=== PATIENT | female | born 1970 | race Caucasian/White ===

== ENCOUNTER 2020-05-13 10:35 | Emergency (ER) | payer MEDICARE, MEDICAID, SELFPAY ==
[2020-05-13 10:39] VITALS: PULSE 75; RESP 18; TEMP 36.5; O2SAT 94; BMI 50.7
--- NOTE | 2020-05-13 10:53 | ED_ITS ---
HPI - Female Genitourinary General: Chief complaint: Urogenital-Female Stated complaint: back pain, hurts to urnine Time Seen by Provider: 05/13/20 10:42 Source: patient Mode of arrival: ambulatory Limitations: other (mental/intellectual disability ) History of Present Illness: HPI Narrative: Patient is a 49-year-old female who presents to ED today with a complaint of left-sided lower back pain, urinary urgency, hesitancy, dribbling over the past few days. Patient tells me she has a previous history of UTIs and states her symptoms today feel similar. She has not had any injury or trauma to the back. She does not complain about specific flank pain. She has not been running fevers. No vomiting. She denies vaginal discharge or vaginal odor. Onset (ago): day(s) Vaginal discharge: none Vaginal bleeding: none Associated symptoms: Deny abdominal pain, headache(s), nausea or vaginal discharge Review of Systems Const: Denies: fever(s), chills, body aches, fatigue, malaise or night sweats Card: Denies: chest pain Resp: Denies: dyspnea GI: Denies: abdominal pain, nausea, vomiting, diarrhea or change in bowel habits : Reports: difficulty voiding, urinary urgency, urinary hesitancy and dribbling; Denies: flank pain, dysuria, urinary frequency, genital lesions, genital pruritis, vaginal odor, vaginal discharge or pelvic pain Musc: Reports: back pain; Denies: neck pain, extremity pain, extremity swelling, joint pain or joint swelling Skin/Breast: Denies: rash Neuro: Denies: headache(s), numbness in extremities, weakness in extremities or sensory changes PFS ED PFSH: Medical History (Updated 05/13/20 @ 12:04 by CAMDEN Brasher) Anxiety Bipolar disorder delivery delivered [birth year] CVA (cerebral vascular accident) Depression Hypertension Morbid obesity Osteoarthritis Sleep apnea TIA (transient ischemic attack) Surgical History H/O adenoidectomy H/O dilation and curettage H/O tubal ligation History of left knee surgery History of tonsillectomy Family History Father CAD (coronary artery disease) Hypertension Mother Hypertension Hypothyroidism Social History Smoking and tobacco status: former smoker Second hand smoke exposure: No Alcohol intake: never Adopted: No Caregiver/support person: Yes Lives independently: Yes Household members: spouse Housing: House Marital status: service: No Current occupational status: disabled Current occupational exposures/hazards: No Pets and animals: No History of recent travel: No Sexually active: No Current gender identity: Female Lara/Mosque: Orthodoxy Special lara needs: No Agree to transfusion: No Financial difficulty paying for basics: Decline to Answer Physical Exam Const: COMMON NORMALS: no acute distress, patient oriented x3 and alert EXAM LIMITATIONS: other limitations (intellectual disability ) GENERAL APPEARANCE: cooperative NUTRITIONAL APPEARANCE: obese morbidly obese HENMT: COMMON NORMALS: normocephalic and atraumatic HEAD & SCALP: normocephalic and atraumatic Resp: COMMON NORMALS: normal respiratory effort and clear to auscultation bilaterally AUSCULTATION: clear to auscultation bilaterally Cardio: COMMON NORMALS: regular rate and regular rhythm RATE: regular rate RHYTHM: regular rhythm GI: COMMON NORMALS: Normal to inspection, nondistended, normoactive bowel sounds present, Soft to palpation, non-tender, No hepatosplenomegaly present and no masses PALPATION: Yes Soft to palpation and Yes No hepatosplenomegaly present : COMMON NORMALS: Yes no CVA tenderness BLADDER/KIDNEY EXAM: Yes no CVA tenderness Back/Pelvis: COMMON NORMALS: no CVA tenderness, thoracic and lumbar spine normal to inspection and thoraco-lumbar ROM normal THORACIC SPINE/UPPER BACK: Yes normal to inspection, Yes thoracic ROM normal, No thoracic spinal tenderness and No paraspinal muscle tenderness LUMBAR SPINE/LOWER BACK: No lumbar spinal tenderness, Yes paraspinal muscle tenderness (L lumbar) and No paraspinal muscle spasm Extremity: COMMON NORMALS: normal to inspection Neuro: COMMON NORMALS: patient oriented x3 SENSORIUM/ORIENTATION: Yes alert Skin: COMMON NORMALS: no rashes or lesions noted GENERAL SKIN EXAM: no rashes or lesions noted Course Vital Signs: Vital signs: Vital Signs Temperature 97.7 F 05/13/20 10:39 Pulse Rate 75 05/13/20 10:39 Respiratory Rate 18 05/13/20 10:39 Pulse Oximetry 94 05/13/20 10:39 MDM - Female MDM Narrative: Medical decision making narrative: pts urine is completely normal; labs overall look okay; nonfasting glucose 161-no diagnosis of diabetes; recommend she followup with PCP Dr. Goldberg for further evaluation; return to ED precautions given Lab Data: Labs: Lab Results 05/13/20 05/13/20 05/13/20 Range/Units 10:53 11:23 11:23 WBC 7.9 (4.0-10.0) 10^3/ uL RBC 4.61 (4.1-5.3) 10^6/u L Hgb 13.0 (11.5-15.3) g/dL Hct 41.7 (37.0-47.0) % MCV 90.5 (81-99) fL MCH 28.2 (28.0-34.0) pg MCHC 31.2 (30.0-36.0) g/dL RDW 13.3 (12.1-15.1) % Plt Count 256 (130-400) 10^3/c mm MPV 9.6 (7.4-10.4) fL Neut % (Auto) 57.6 % Lymph % (Auto) 36.1 % Hendricks % (Auto) 4.2 % Eos % (Auto) 1.4 % Baso % (Auto) 0.4 % Neut # (Auto) 4.57 (1.8-7.7) 10^3/u L Lymph # (Auto) 2.9 (0.8-4.8) 10^3/u L Hendricks # (Auto) 0.3 (0.2-0.9) 10^3/u L Eos # (Auto) 0.1 (0.0-0.8) 10^3/u L Baso # (Auto) 0.0 (0.0-0.1) 10^3/u L Nucleated RBC % (a uto) 0 % Nucleated RBCs # 0.0 /100WBC Sodium 137 (136-145) mmol/L Potassium 3.6 (3.5-5.1) mmol/L Chloride 99 (98-107) mmol/L Carbon Dioxide 28 (22-29) mmol/L Anion Gap 13.6 (5-19) BUN 13 (6-20) mg/dL Creatinine 1.0 H (0.5-0.9) mg/dL GFR Calculation 58.9 L (90-130) mL/min Glucose 161 H (65-115) mg/dL Calculated Osmolal ity 284 L (285-295) mOsm/k g Calcium 9.7 (8.5-10.5) mg/dL Total Bilirubin 0.2 (0.15-1.2) mg/dL AST 18 (0-32) U/L ALT 21 (0-33) U/L Alkaline Phosphata se 45 (35-105) IU/L Total Protein 6.8 (6.6-8.7) g/dL Albumin 4.2 (3.5-5.2) g/dL Globulin 2.6 (1.3-4.6) g/dL Urine Color Yellow (Yellow) Urine Appearance Clear (CLEAR) Urine pH 5 (5-7) Ur Specific Gravit y 1.015 (1.005-1.030) Urine Protein Neg (Negative) Urine Glucose (UA) Norm (Normal) Urine Ketones Negative (Negative) Urine Blood Neg (Negative) Urine Nitrate Negative (Negative) Urine Bilirubin Neg (NEGATIVE) Urine Urobilinogen Neg (Negative) mg/dL Ur Leukocyte Elizabeth ase Negative (Negative) Discharge Plan Discharge Patient Disposition: Home Clinical Impression: Elevated glucose level, Urinary urgency Acute left-sided back pain Qualifiers: Back pain location: low back pain Sciatica presence: without sciatica Qualified Code(s): M54.5 - Low back pain Condition: Stable Prescriptions: No Action trazodone 150 mg tablet 150 mg PO DAILY RF: 0 spironolacton-hydrochlorothiaz [Aldactazide] 25-25 mg tablet 0.5 tab PO DAILY RF: 0 metoprolol succinate 50 mg tablet extended release 24 hr 50 mg PO DAILY RF: 0 clopidogrel 75 mg tablet 75 mg PO DAILY RF: 0 pravastatin 80 mg tablet 80 mg PO DAILY RF: 0 tramadol 50 mg tablet 50 mg PO BID PRNRF: 0 fluoxetine 10 mg capsule 10 mg PO DAILY RF: 0 fluoxetine 20 mg capsule 20 mg PO DAILY RF: 0 hydroxyzine HCl 50 mg tablet 25 mg PO QID PRNRF: 0 bumetanide 2 mg tablet 2 mg PO DAILY RF: 0 potassium chloride [Klor-Con 10] 10 mEq tablet extended release 10 meq PO DAILY RF: 0 losartan 100 mg tablet 100 mg PO DAILY RF: 0 risperidone 1 mg tablet 1 mg PO BID RF: 0 amlodipine 5 mg tablet 2.5 mg PO DAILY RF: 0 Discharge Orders: Discharge Order (Routine); Ordered 05/13/20 Ordered By: Angela Cavazos Referrals: Deanna Lugo NP [Primary Care Provider] - Activity Restrictions/Additional Instructions: As discussed please follow up with Dr. Goldberg in the next 3-5 days for re- evaluation. Return to the emergency department for worsening pain, fevers, inability to urinate, any other concerns you may have. Coding Level of Care Code ED Outside Sales Executive for Marlineg Fwd Exam Comprehensive
[2020-05-13 11:10] LABS: Add Urine Microscopic? NO
[2020-05-13 11:25] LABS: Bilirubin Urine Neg (NEGATIVE); Blood Urine Neg (Negative); Glucose Urine UA Norm (Normal); Ketones Urine Negative (Negative); Leukocyte Esterase Urine Negative (Negative); Nitrate Urine Negative (Negative); Protein Urine Neg (Negative); Specific Gravity, Urine 1.015 (1.005-1.030); Urine Appearance Clear (CLEAR); Urine Color Yellow (Yellow); Urobilinogen Urine Neg (Negative); pH Urine 5 (5-7)
[2020-05-13 11:29] LABS: Basophils % 0.4 %; Eosinophils # 0.1 10^3/uL (0.0-0.8); Eosinophils % 1.4 %; Hematocrit 41.7 % (37.0-47.0); Lymphocytes # 2.9 10^3/uL (0.8-4.8); Lymphocytes % 36.1 %; Mean Corpuscular HGB Conc 31.2 g/dL (30.0-36.0); Mean Corpuscular Hemoglobin 28.2 pg (28.0-34.0); Mean Corpuscular Volume 90.5 fL (81-99); Mean Platelet Volume 9.6 fL (7.4-10.4); Monocytes # 0.3 10^3/uL (0.2-0.9); Monocytes % 4.2 %; Neutrophils # 4.57 10^3/uL (1.8-7.7); Neutrophils % 57.6 %; Nucleated Red Blood Cells % 0 %; Platelet Count 256 10^3/cmm (130-400); Red Blood Count 4.61 10^6/uL (4.1-5.3); Red Cell Distribution Width 13.3 % (12.1-15.1); White Blood Count 7.9 10^3/uL (4.0-10.0)
[2020-05-13 11:53] LABS: Alanine Aminotransferase 21 U/L (0-33); Albumin Level 4.2 g/dL (3.5-5.2); Alkaline Phosphatase 45 IU/L (35-105); Anion Gap 13.6 (5-19); Aspartate Amino Transferase 18 U/L (0-32); Blood Urea Nitrogen 13 mg/dL (6-20); Calcium 9.7 mg/dL (8.5-10.5); Carbon Dioxide 28 mmol/L (22-29); Chloride 99 mmol/L (98-107); Globulin 2.6 g/dL (1.3-4.6); Glomerular Filtration Rate 58.9 mL/min (90-130); Glucose 161 mg/dL (65-115); Osmolality Calculated 284 mOsm/kg (285-295); Potassium 3.6 mmol/L (3.5-5.1); Sodium 137 mmol/L (136-145); Total Bilirubin 0.2 mg/dL (0.15-1.2); Total Protein 6.8 g/dL (6.6-8.7)
[2020-05-13 12:09] VITALS: PULSE 73; RESP 18; O2SAT 93
== END 2020-05-13 12:10 | disposition home or self-care (01) ==
PROVIDERS: Emergency Provider Physician Assistant; PCP Nurse Practitioner Family
DX: M54.5 Low back pain (principal); R39.15 Urgency of urination; R73.9 Hyperglycemia, unspecified; Z79.02 Long term (current) use of antithrombotics/antiplatelets; Z87.891 Personal history of nicotine dependence; Z86.73 Personal history of transient ischemic attack (TIA), and cerebral infarction without residual deficits; I10 Essential (primary) hypertension
CPT/HCPCS: 12345; 36415; 80053; 81003; 85025; 99282

== ENCOUNTER 2021-01-31 16:44 | Emergency (ER) | payer MEDICARE, MEDICAID, SELFPAY ==
[2021-01-31] VITALS (15 sets, daily range): BP systolic 153–201; BP diastolic 94–162; PULSE 65–75; RESP 16–24; TEMP 36.6–36.7; O2SAT 94–96; BMI 50.5
--- NOTE | 2021-01-31 17:07 | ECG_ITS ---
[facility] Test Date: 2021-01-31 Pat Name: Lauryn Ho Department: Room: Gender: Female Card Placer: : 1970 Requested By: Gurjit Garcia Order Number: [id number] Marcelino MD: Lona Gomez M.D. Measurements Intervals [place] Rate: 58 P: 27 HI: 169 QRS: -11 QRSD: 92 T: 59 QT: 451 QTc: 446 Interpretive Statements SINUS BRADYCARDIA Compared to ECG 10/13/2018 16:59:42 Sinus rhythm no longer present T-wave abnormality no longer present Electronically Signed On 01-31-2021 21:15:44 CDT by Lona Gomez M.D. [id number] f
--- NOTE | 2021-01-31 17:07 | XR_ITS ---
WS: [id number] Exam: XR chest 1V portable [id number] Date/Time of Exam: 01/31/2021 5:34 PM Reason For Exam: dyspnea/cough Comparison 10/13/2018. Findings: The lungs are clear and fully expanded. Costophrenic angles are sharp. No infiltrates. Bronchovascula r relief appears normal. Cardiac silhouette is unremarkable. Bony elements are intact. XR/XR chest 1V portable [id number] IMPRESSION: Unremarkable chest radiograph.
--- NOTE | 2021-01-31 17:18 | W.ED.SOB ---
Documented by User: Gurjit Shaw DO 02/01/21 05:50 HPI - SOB/Dyspnea General: Chief Complaint: Shortness of Breath/Dyspnea Stated Complaint: TROUBLE BREATHING Time Seen by Provider: 01/31/21 17:00 History of Present Illness: HPI Narrative: 50-year-old female presents to the emergency room with a history of COPD complaining of shortness of breath. She denies any chest pain. She not had a fever. She has a chronic cough she feels like she needs to cough something up but has not been able to do so. She is not had any fever sweats or chills. She states she has used her butyryl inhaler at home without any significant relief MD elicited complaint: shortness of breath and cough Pertinent past history: COPD Onset (ago): day(s) Context: occurred during exertion Timing: constant Severity: mild Exacerbating factors: exertion and coughing Relieving factors: rest Known history of: COPD Associated symptoms: Reports chest congestion and cough; Deny abdominal pain, chest pain, diaphoresis, dizziness, extremity pain, fever(s), hemoptysis, lightheadedness, myalgias, nausea, orthopnea, palpitations, paresthesias, polydipsia, polyuria, rash, sense of impending doom, syncope or vomiting Treatment prior to arrival: bronchodilator Review of Systems Const: Denies: fever(s) or diaphoresis ENMT: Denies: throat pain, ear or mastoid pain, nasal discharge or nasal congestion Card: Denies: chest pain, palpitations, lightheadedness, syncope or orthopnea Resp: Reports: chest congestion; Denies: hemoptysis GI: Denies: abdominal pain, nausea or vomiting : Denies: flank pain, difficulty voiding, dysuria, urinary frequency or urinary urgency Musc: Denies: extremity pain Skin/Breast: Denies: rash or pruritus Neuro: Denies: dizziness Endo: Denies: polyuria or polydipsia PFSH ED PFSH: Medical History Anxiety Bipolar disorder delivery delivered 1991 CVA (cerebral vascular accident) Depression Hypertension Morbid obesity Osteoarthritis Sleep apnea TIA (transient ischemic attack) Surgical History H/O adenoidectomy H/O dilation and curettage H/O tubal ligation History of left knee surgery History of tonsillectomy Family History Father CAD (coronary artery disease) Hypertension Mother Hypertension Hypothyroidism Social History Smoking and tobacco status: former smoker Alcohol intake: never Household members: spouse Marital status: Current occupational status: disabled Current occupational exposures/hazards: No History of recent travel: No [employer]ara/[employer]: [employer] Special lara needs: No Agree to transfusion: No Financial difficulty paying for basics: Decline to Answer Physical Exam Const: COMMON NORMALS: no acute distress GENERAL APPEARANCE: cooperative and comfortable ORIENTATION/CONSCIOUSNESS: Yes awake, Yes oriented to person, Yes oriented to place and Yes oriented to time HENMT: COMMON NORMALS: normocephalic, atraumatic and hearing grossly normal bilaterally HEAD & SCALP: normocephalic and atraumatic Eye: COMMON NORMALS: Equal, round and reactive pupils present, EOMs intact bilaterally, conjunctivae normal and no scleral icterus CONJUNCTIVA: Yes conjunctivae normal PUPIL: Yes Equal, round and reactive pupils present Neck/C-Spine: COMMON NORMALS: no JVD Resp: COMMON NORMALS: normal respiratory effort, No retractions, No use of accessory muscles and clear to auscultation bilaterally AUSCULTATION: clear to auscultation bilaterally Cardio: COMMON NORMALS: no JVD, regular rate, regular rhythm and No murmurs present (Cardio) RATE: regular rate RHYTHM: regular rhythm GI: COMMON NORMALS: Soft to palpation and No hepatosplenomegaly present AUSCULTATION: Yes normoactive bowel sounds PALPATION: Yes Soft to palpation, No Tenderness to palpation present (GI), No Guarding due to palpation present (GI) and Yes No hepatosplenomegaly present Extremity: COMMON NORMALS: normal to inspection, capillary refill normal, no clubbing, cyanosis or edema, no calf tenderness and no pedal edema Neuro: SENSORIUM/ORIENTATION: Yes oriented to person, Yes oriented to place and Yes oriented to time Skin: COMMON NORMALS: no rashes or lesions noted GENERAL SKIN EXAM: no rashes or lesions noted Course Vital Signs: Vital signs: Vital Signs Temperature 98.1 F 01/31/21 21:21 Pulse Rate 69 01/31/21 21:21 Respiratory Rate 18 01/31/21 21:21 Blood Pressure 153/101 01/31/21 21:21 Pulse Oximetry 95 01/31/21 21:21 MDM - SOB/Dyspnea MDM Narrative: Medical decision making narrative: Patient's lung sounds on exam are clear she is not tachycardic or hypoxic. Her chest x-ray is normal. EKG does not show anything acute see what her labs are still pending care turned over to Dr. Johnson at change of shift. See his note for final diagnosis and disposition. Lab Data: Labs: Lab Results 01/31/21 01/31/21 01/31/21 Range/Units 17:35 17:35 17:35 WBC 8.2 (4.0-10.0) 10^3/ uL RBC 4.60 (4.1-5.3) 10^6/u L Hgb 13.0 (11.5-15.3) g/dL Hct 41.6 (37.0-47.0) % MCV 90.4 (81-99) fL MCH 28.3 (28.0-34.0) pg MCHC 31.3 (30.0-36.0) g/dL RDW 14.6 (12.1-15.1) % Plt Count 260 (130-400) 10^3/c mm MPV 10.1 (7.4-10.4) fL Neut % (Auto) 51.7 % Lymph % (Auto) 38.4 % [place] % (Auto) 7.7 % Eos % (Auto) 1.2 % Baso % (Auto) 0.4 % Neut # (Auto) 4.23 (1.8-7.7) 10^3/u L Lymph # (Auto) 3.1 (0.8-4.8) 10^3/u L [place] # (Auto) 0.6 (0.2-0.9) 10^3/u L Eos # (Auto) 0.1 (0.0-0.8) 10^3/u L Baso # (Auto) 0.0 (0.0-0.1) 10^3/u L Nucleated RBC % (a uto) 0 % Nucleated RBCs # 0.0 /100WBC D-Dimer (0-0.59) ug/mIFE U Specimen Type Sample Site ABG pH (7.35-7.45) ABG pCO2 (35-45) mmHg ABG pO2 (80.0-100.0) mmH g ABG HCO3 (22-26) mmol/L ABG O2 Saturation ABG Base Excess (-2.0-2.0) mmol/ L Steve Test A-a O2 Gradient Hematocrit (37-47) % Hgb O2 Saturation (95-100) % Carboxyhemoglobin (0.4-20.1) %THgb Methemoglobin (0.4-1.5) % Total Hemoglobin (12-16) g/dL Ionized Calcium (1.1-1.4) mmol/L O2 Delivery Device Restaurant Service Manager ID Sodium 140 (136-145) mmol/L Potassium 4.1 (3.5-5.1) mmol/L Chloride 104 (98-107) mmol/L Carbon Dioxide 27 (22-29) mmol/L Anion Gap 13.1 (5-19) BUN 9 (6-20) mg/dL Creatinine 0.7 (0.5-0.9) mg/dL GFR Calculation 88.6 L (90-130) mL/min Glucose 84 (65-115) mg/dL Calculated Osmolal ity 288 (285-295) mOsm/k g Calcium 9.1 (8.5-10.5) mg/dL Total Bilirubin 0.2 (0.15-1.2) mg/dL AST 13 (0-32) U/L ALT 11 (0-33) U/L Alkaline Phosphata se 56 (35-105) IU/L Troponin T Baselin e 10 (0-10) ng/L Troponin T 120 Min [place] (0-10) ng/L Delta Troponin T (0-10) ABS# NT-Pro-B Natriuret Pep (0-125) pg/mL Total Protein 6.7 (6.6-8.7) g/dL Albumin 4.2 (3.5-5.2) g/dL Globulin 2.5 (1.3-4.6) g/dL 01/31/21 01/31/21 01/31/21 Range/Units 17:35 17:44 19:00 WBC (4.0-10.0) 10^3/ uL RBC (4.1-5.3) 10^6/u L Hgb (11.5-15.3) g/dL Hct (37.0-47.0) % MCV (81-99) fL MCH (28.0-34.0) pg MCHC (30.0-36.0) g/dL RDW (12.1-15.1) % Plt Count (130-400) 10^3/c mm MPV (7.4-10.4) fL Neut % (Auto) % Lymph % (Auto) % [place] % (Auto) % Eos % (Auto) % Baso % (Auto) % Neut # (Auto) (1.8-7.7) 10^3/u L Lymph # (Auto) (0.8-4.8) 10^3/u L [place] # (Auto) (0.2-0.9) 10^3/u L Eos # (Auto) (0.0-0.8) 10^3/u L Baso # (Auto) (0.0-0.1) 10^3/u L Nucleated RBC % (a uto) % Nucleated RBCs # /100WBC D-Dimer (0-0.59) ug/mIFE U Specimen Type Arterial Sample Site Radial, right ABG pH 7.58 H* (7.35-7.45) ABG pCO2 23.5 L (35-45) mmHg ABG pO2 181.0 H (80.0-100.0) mmH g ABG HCO3 21.8 L (22-26) mmol/L ABG O2 Saturation 98.9 ABG Base Excess 1.3 (-2.0-2.0) mmol/ L Steve Test Pos A-a O2 Gradient Not Reportable Hematocrit 37.6 (37-47) % Hgb O2 Saturation 98.3 (95-100) % Carboxyhemoglobin 0.0 L (0.4-20.1) %THgb Methemoglobin 0.7 (0.4-1.5) % Total Hemoglobin 12.3 (12-16) g/dL Ionized Calcium 1.2 (1.1-1.4) mmol/L O2 Delivery Device Room air Restaurant Service Manager ID jmn Sodium 138.0 (136-145) mmol/L Potassium 4.6 (3.5-5.1) mmol/L Chloride (98-107) mmol/L Carbon Dioxide (22-29) mmol/L Anion Gap (5-19) BUN (6-20) mg/dL Creatinine (0.5-0.9) mg/dL GFR Calculation (90-130) mL/min Glucose 89.0 (65-115) mg/dL Calculated Osmolal ity (285-295) mOsm/k g Calcium (8.5-10.5) mg/dL Total Bilirubin (0.15-1.2) mg/dL AST (0-32) U/L ALT (0-33) U/L Alkaline Phosphata se (35-105) IU/L Troponin T Baselin e (0-10) ng/L Troponin T 120 Min [place] 9.76 (0-10) ng/L Delta Troponin T -0.24 L (0-10) ABS# NT-Pro-B Natriuret Pep 365 H (0-125) pg/mL Total Protein (6.6-8.7) g/dL Albumin (3.5-5.2) g/dL Globulin (1.3-4.6) g/dL 01/31/21 Range/Units 20:40 WBC (4.0-10.0) 10^3/ uL RBC (4.1-5.3) 10^6/u L Hgb (11.5-15.3) g/dL Hct (37.0-47.0) % MCV (81-99) fL MCH (28.0-34.0) pg MCHC (30.0-36.0) g/dL RDW (12.1-15.1) % Plt Count (130-400) 10^3/c mm MPV (7.4-10.4) fL Neut % (Auto) % Lymph % (Auto) % [place] % (Auto) % Eos % (Auto) % Baso % (Auto) % Neut # (Auto) (1.8-7.7) 10^3/u L Lymph # (Auto) (0.8-4.8) 10^3/u L [place] # (Auto) (0.2-0.9) 10^3/u L Eos # (Auto) (0.0-0.8) 10^3/u L Baso # (Auto) (0.0-0.1) 10^3/u L Nucleated RBC % (a uto) % Nucleated RBCs # /100WBC D-Dimer 0.32 (0-0.59) ug/mIFE U Specimen Type Sample Site ABG pH (7.35-7.45) ABG pCO2 (35-45) mmHg ABG pO2 (80.0-100.0) mmH g ABG HCO3 (22-26) mmol/L ABG O2 Saturation ABG Base Excess (-2.0-2.0) mmol/ L Steve Test A-a O2 Gradient Hematocrit (37-47) % Hgb O2 Saturation (95-100) % Carboxyhemoglobin (0.4-20.1) %THgb Methemoglobin (0.4-1.5) % Total Hemoglobin (12-16) g/dL Ionized Calcium (1.1-1.4) mmol/L O2 Delivery Device Restaurant Service Manager ID Sodium (136-145) mmol/L Potassium (3.5-5.1) mmol/L Chloride (98-107) mmol/L Carbon Dioxide (22-29) mmol/L Anion Gap (5-19) BUN (6-20) mg/dL Creatinine (0.5-0.9) mg/dL GFR Calculation (90-130) mL/min Glucose (65-115) mg/dL Calculated Osmolal ity (285-295) mOsm/k g Calcium (8.5-10.5) mg/dL Total Bilirubin (0.15-1.2) mg/dL AST (0-32) U/L ALT (0-33) U/L Alkaline Phosphata se (35-105) IU/L Troponin T Baselin e (0-10) ng/L Troponin T 120 Min [place] (0-10) ng/L Delta Troponin T (0-10) ABS# NT-Pro-B Natriuret Pep (0-125) pg/mL Total Protein (6.6-8.7) g/dL Albumin (3.5-5.2) g/dL Globulin (1.3-4.6) g/dL Discharge Plan Discharge Patient Disposition: Home Clinical Impression: Acute exacerbation of chronic obstructive airways disease Condition: Stable Prescriptions: No Action trazodone 150 mg tablet 150 mg PO BEDTIME RF: 0 spironolacton-hydrochlorothiaz [Aldactazide] 25-25 mg tablet 1 tab PO DAILY RF: 0 metoprolol succinate 50 mg tablet extended release 24 hr 50 mg PO DAILY RF: 0 clopidogrel 75 mg tablet 75 mg PO DAILY RF: 0 tramadol 50 mg tablet 50 mg PO BID PRN (Reason: Pain) RF: 0 fluoxetine 10 mg capsule 10 mg PO DAILY RF: 0 fluoxetine 20 mg capsule 20 mg PO DAILY RF: 0 hydroxyzine HCl 50 mg tablet 25 mg PO QID PRN (Reason: Anxiety) RF: 0 bumetanide 2 mg tablet 2 mg PO DAILY PRN (Reason: Edema) RF: 0 potassium chloride [Klor-Con 10] 10 mEq tablet extended release 10 meq PO DAILY RF: 0 losartan 100 mg tablet 100 mg PO DAILY RF: 0 risperidone 1 mg tablet 1 mg PO BID RF: 0 amlodipine 5 mg tablet 7.5 mg PO DAILY RF: 0 losartan 50 mg Tablet 50 mg PO DAILY RF: 0 Discharge Orders: Discharge ED (Routine); Ordered 01/31/21 Ordered By: Selina Johnson Referrals: Deanna Lugo NP [Primary Care Provider] - 1-3 days Discharge Diet: Advance as tolerated Discharge Activity: Resume usual activity Patient Instructions: Chronic Obstructive Pulmonary Disease (ED) Coding Level of Care Code ED Health Care Law Specialist for Chg Fwd Exam Comprehensive Documented by User: Selina Johnson MD 01/31/21 21:01 HPI - SOB/Dyspnea General: Chief Complaint: Shortness of Breath/Dyspnea Stated Complaint: TROUBLE BREATHING Time Seen by Provider: 01/31/21 17:00 [facility] ED PFSH: Medical History Anxiety Bipolar disorder delivery delivered 1988, 1991 CVA (cerebral vascular accident) Depression Hypertension Morbid obesity Osteoarthritis Sleep apnea TIA (transient ischemic attack) Surgical History H/O adenoidectomy H/O dilation and curettage H/O tubal ligation History of left knee surgery History of tonsillectomy Family History Father CAD (coronary artery disease) Hypertension Mother Hypertension Hypothyroidism Social History Smoking and tobacco status: former smoker Alcohol intake: never Household members: spouse Marital status: Current occupational status: disabled Current occupational exposures/hazards: No History of recent travel: No [employer]ara/[employer]: [employer] Special lara needs: No Agree to transfusion: No Financial difficulty paying for basics: Decline to Answer Physical Exam Const: COMMON NORMALS: no acute distress, patient oriented x3 and healthy appearing HENMT: COMMON NORMALS: normocephalic and atraumatic HEAD & SCALP: normocephalic and atraumatic Eye: COMMON NORMALS: Equal, round and reactive pupils present and EOMs intact bilaterally PUPIL: Yes Equal, round and reactive pupils present Neck/C-Spine: COMMON NORMALS: full ROM and supple Chest: COMMONS NORMALS: normal inspection of the chest and normal palpation of entire chest wall Resp: COMMON NORMALS: normal respiratory effort, No retractions, No use of accessory muscles and clear to auscultation bilaterally AUSCULTATION: clear to auscultation bilaterally Cardio: COMMON NORMALS: regular rate, regular rhythm and No murmurs present (Cardio) RATE: regular rate RHYTHM: regular rhythm GI: COMMON NORMALS: Normal to inspection, nondistended, normoactive bowel sounds present, Soft to palpation, non-tender and no masses PALPATION: Yes Soft to palpation Extremity: COMMON NORMALS: normal to inspection and full ROM Neuro: COMMON NORMALS: patient oriented x3, moves all extremities and no focal motor deficits Psych: COMMON NORMALS: mental status grossly normal, Normal thought process present and cooperative THOUGHT PROCESS: Normal thought process present Skin: COMMON NORMALS: no rashes or lesions noted and no wounds GENERAL SKIN EXAM: no rashes or lesions noted Course Vital Signs: Vital signs: Vital Signs Temperature 98.1 F 01/31/21 21:21 Pulse Rate 69 01/31/21 21:21 Respiratory Rate 18 01/31/21 21:21 Blood Pressure 153/101 01/31/21 21:21 Pulse Oximetry 95 01/31/21 21:21 MDM - SOB/Dyspnea MDM Narrative: Medical decision making narrative: Patient presents with likely asthma exacerbation. She feels much improved after breathing treatment. I did give her Decadron. Her troponins are negative her D-dimer is negative as well. She has no signs of pulmonary embolism. She has no signs of pneumonia. She is to use her inhaler at home and follow-up with her PCP in 2 to 4 days and return if worsening. She understands agrees to plan. Lab Data: Labs: Lab Results 01/31/21 01/31/21 01/31/21 Range/Units 17:35 17:35 17:35 WBC 8.2 (4.0-10.0) 10^3/ uL RBC 4.60 (4.1-5.3) 10^6/u L Hgb 13.0 (11.5-15.3) g/dL Hct 41.6 (37.0-47.0) % MCV 90.4 (81-99) fL MCH 28.3 (28.0-34.0) pg MCHC 31.3 (30.0-36.0) g/dL RDW 14.6 (12.1-15.1) % Plt Count 260 (130-400) 10^3/c mm MPV 10.1 (7.4-10.4) fL Neut % (Auto) 51.7 % Lymph % (Auto) 38.4 % [place] % (Auto) 7.7 % Eos % (Auto) 1.2 % Baso % (Auto) 0.4 % Neut # (Auto) 4.23 (1.8-7.7) 10^3/u L Lymph # (Auto) 3.1 (0.8-4.8) 10^3/u L [place] # (Auto) 0.6 (0.2-0.9) 10^3/u L Eos # (Auto) 0.1 (0.0-0.8) 10^3/u L Baso # (Auto) 0.0 (0.0-0.1) 10^3/u L Nucleated RBC % (a uto) 0 % Nucleated RBCs # 0.0 /100WBC D-Dimer (0-0.59) ug/mIFE U Specimen Type Sample Site ABG pH (7.35-7.45) ABG pCO2 (35-45) mmHg ABG pO2 (80.0-100.0) mmH g ABG HCO3 (22-26) mmol/L ABG O2 Saturation ABG Base Excess (-2.0-2.0) mmol/ L Steve Test A-a O2 Gradient Hematocrit (37-47) % Hgb O2 Saturation (95-100) % Carboxyhemoglobin (0.4-20.1) %THgb Methemoglobin (0.4-1.5) % Total Hemoglobin (12-16) g/dL Ionized Calcium (1.1-1.4) mmol/L O2 Delivery Device Restaurant Service Manager ID Sodium 140 (136-145) mmol/L Potassium 4.1 (3.5-5.1) mmol/L Chloride 104 (98-107) mmol/L Carbon Dioxide 27 (22-29) mmol/L Anion Gap 13.1 (5-19) BUN 9 (6-20) mg/dL Creatinine 0.7 (0.5-0.9) mg/dL GFR Calculation 88.6 L (90-130) mL/min Glucose 84 (65-115) mg/dL Calculated Osmolal ity 288 (285-295) mOsm/k g Calcium 9.1 (8.5-10.5) mg/dL Total Bilirubin 0.2 (0.15-1.2) mg/dL AST 13 (0-32) U/L ALT 11 (0-33) U/L Alkaline Phosphata se 56 (35-105) IU/L Troponin T Baselin e 10 (0-10) ng/L Troponin T 120 Min [place] (0-10) ng/L Delta Troponin T (0-10) ABS# NT-Pro-B Natriuret Pep (0-125) pg/mL Total Protein 6.7 (6.6-8.7) g/dL Albumin 4.2 (3.5-5.2) g/dL Globulin 2.5 (1.3-4.6) g/dL 01/31/21 01/31/21 01/31/21 Range/Units 17:35 17:44 19:00 WBC (4.0-10.0) 10^3/ uL RBC (4.1-5.3) 10^6/u L Hgb (11.5-15.3) g/dL Hct (37.0-47.0) % MCV (81-99) fL MCH (28.0-34.0) pg MCHC (30.0-36.0) g/dL RDW (12.1-15.1) % Plt Count (130-400) 10^3/c mm MPV (7.4-10.4) fL Neut % (Auto) % Lymph % (Auto) % [place] % (Auto) % Eos % (Auto) % Baso % (Auto) % Neut # (Auto) (1.8-7.7) 10^3/u L Lymph # (Auto) (0.8-4.8) 10^3/u L [place] # (Auto) (0.2-0.9) 10^3/u L Eos # (Auto) (0.0-0.8) 10^3/u L Baso # (Auto) (0.0-0.1) 10^3/u L Nucleated RBC % (a uto) % Nucleated RBCs # /100WBC D-Dimer (0-0.59) ug/mIFE U Specimen Type Arterial Sample Site Radial, right ABG pH 7.58 H* (7.35-7.45) ABG pCO2 23.5 L (35-45) mmHg ABG pO2 181.0 H (80.0-100.0) mmH g ABG HCO3 21.8 L (22-26) mmol/L ABG O2 Saturation 98.9 ABG Base Excess 1.3 (-2.0-2.0) mmol/ L Steve Test Pos A-a O2 Gradient Not Reportable Hematocrit 37.6 (37-47) % Hgb O2 Saturation 98.3 (95-100) % Carboxyhemoglobin 0.0 L (0.4-20.1) %THgb Methemoglobin 0.7 (0.4-1.5) % Total Hemoglobin 12.3 (12-16) g/dL Ionized Calcium 1.2 (1.1-1.4) mmol/L O2 Delivery Device Room air Restaurant Service Manager ID jmn Sodium 138.0 (136-145) mmol/L Potassium 4.6 (3.5-5.1) mmol/L Chloride (98-107) mmol/L Carbon Dioxide (22-29) mmol/L Anion Gap (5-19) BUN (6-20) mg/dL Creatinine (0.5-0.9) mg/dL GFR Calculation (90-130) mL/min Glucose 89.0 (65-115) mg/dL Calculated Osmolal ity (285-295) mOsm/k g Calcium (8.5-10.5) mg/dL Total Bilirubin (0.15-1.2) mg/dL AST (0-32) U/L ALT (0-33) U/L Alkaline Phosphata se (35-105) IU/L Troponin T Baselin e (0-10) ng/L Troponin T 120 Min [place] 9.76 (0-10) ng/L Delta Troponin T -0.24 L (0-10) ABS# NT-Pro-B Natriuret Pep 365 H (0-125) pg/mL Total Protein (6.6-8.7) g/dL Albumin (3.5-5.2) g/dL Globulin (1.3-4.6) g/dL 01/31/21 Range/Units 20:40 WBC (4.0-10.0) 10^3/ uL RBC (4.1-5.3) 10^6/u L Hgb (11.5-15.3) g/dL Hct (37.0-47.0) % MCV (81-99) fL MCH (28.0-34.0) pg MCHC (30.0-36.0) g/dL RDW (12.1-15.1) % Plt Count (130-400) 10^3/c mm MPV (7.4-10.4) fL Neut % (Auto) % Lymph % (Auto) % [place] % (Auto) % Eos % (Auto) % Baso % (Auto) % Neut # (Auto) (1.8-7.7) 10^3/u L Lymph # (Auto) (0.8-4.8) 10^3/u L [place] # (Auto) (0.2-0.9) 10^3/u L Eos # (Auto) (0.0-0.8) 10^3/u L Baso # (Auto) (0.0-0.1) 10^3/u L Nucleated RBC % (a uto) % Nucleated RBCs # /100WBC D-Dimer 0.32 (0-0.59) ug/mIFE U Specimen Type Sample Site ABG pH (7.35-7.45) ABG pCO2 (35-45) mmHg ABG pO2 (80.0-100.0) mmH g ABG HCO3 (22-26) mmol/L ABG O2 Saturation ABG Base Excess (-2.0-2.0) mmol/ L Steve Test A-a O2 Gradient Hematocrit (37-47) % Hgb O2 Saturation (95-100) % Carboxyhemoglobin (0.4-20.1) %THgb Methemoglobin (0.4-1.5) % Total Hemoglobin (12-16) g/dL Ionized Calcium (1.1-1.4) mmol/L O2 Delivery Device Restaurant Service Manager ID Sodium (136-145) mmol/L Potassium (3.5-5.1) mmol/L Chloride (98-107) mmol/L Carbon Dioxide (22-29) mmol/L Anion Gap (5-19) BUN (6-20) mg/dL Creatinine (0.5-0.9) mg/dL GFR Calculation (90-130) mL/min Glucose (65-115) mg/dL Calculated Osmolal ity (285-295) mOsm/k g Calcium (8.5-10.5) mg/dL Total Bilirubin (0.15-1.2) mg/dL AST (0-32) U/L ALT (0-33) U/L Alkaline Phosphata se (35-105) IU/L Troponin T Baselin e (0-10) ng/L Troponin T 120 Min [place] (0-10) ng/L Delta Troponin T (0-10) ABS# NT-Pro-B Natriuret Pep (0-125) pg/mL Total Protein (6.6-8.7) g/dL Albumin (3.5-5.2) g/dL Globulin (1.3-4.6) g/dL Imaging Data^: CXR: Attestation: I personally reviewed and interpreted this imaging study as follows: My impression: no acute abnormality EKG Data^: EKG 1: Attestation: I personally reviewed and interpreted this EKG as follows: EKG Interpretation Date: 01/31/21 EKG interpretation time: 19:23 Interpretation: nsr hr [address] or t wave abnormalities qrs 90 qtc 410 Discharge Plan Discharge Patient Disposition: Home Clinical Impression: Acute exacerbation of chronic obstructive airways disease Condition: Stable Prescriptions: No Action trazodone 150 mg tablet 150 mg PO BEDTIME RF: 0 spironolacton-hydrochlorothiaz [Aldactazide] 25-25 mg tablet 1 tab PO DAILY RF: 0 metoprolol succinate 50 mg tablet extended release 24 hr 50 mg PO DAILY RF: 0 clopidogrel 75 mg tablet 75 mg PO DAILY RF: 0 tramadol 50 mg tablet 50 mg PO BID PRN (Reason: Pain) RF: 0 fluoxetine 10 mg capsule 10 mg PO DAILY RF: 0 fluoxetine 20 mg capsule 20 mg PO DAILY RF: 0 hydroxyzine HCl 50 mg tablet 25 mg PO QID PRN (Reason: Anxiety) RF: 0 bumetanide 2 mg tablet 2 mg PO DAILY PRN (Reason: Edema) RF: 0 potassium chloride [Klor-Con 10] 10 mEq tablet extended release 10 meq PO DAILY RF: 0 losartan 100 mg tablet 100 mg PO DAILY RF: 0 risperidone 1 mg tablet 1 mg PO BID RF: 0 amlodipine 5 mg tablet 7.5 mg PO DAILY RF: 0 losartan 50 mg Tablet 50 mg PO DAILY RF: 0 Discharge Orders: Discharge ED (Routine); Ordered 01/31/21 Ordered By: Selina Johnson Referrals: Deanna Lugo NP [Primary Care Provider] - 1-3 days Discharge Diet: Advance as tolerated Discharge Activity: Resume usual activity Patient Instructions: Chronic Obstructive Pulmonary Disease (ED) Coding Level of Care Code ED Health Care Law Specialist for Chg Fwd Exam Comprehensive
[2021-01-31 17:53] LABS: ABG PCO2 23.5 mmHg (35-45); Arterial Blood Gas Hematocrit 37.6 % (37-47); Base Excess ABG 1.3 mmol/L (-2.0-2.0); Blood Gas Allen Test Pos; Blood Gas Sample Site Radial, right; Blood Gas Sample Type Arterial; HCO3 ABG 21.8 mmol/L (22-26); HGB O2 Sat 98.3 % (95-100); Ionized Calcium Level - ABG 1.2 mmol/L (1.1-1.4); Methemoglobin 0.7 % (0.4-1.5); Oxygen Device ROOM AIR; Oxygen Saturation ABG 98.9; Potassium Level - ABG 4.6 mmol/L (3.5-5.0); Total Hemoglobin 12.3 g/dL (12-16)
[2021-01-31 17:54] LABS: ABG PH Result 7.58 (7.35-7.45)
[2021-01-31 17:54] LABS: Basophils % 0.4 %; Eosinophils # 0.1 10^3/uL (0.0-0.8); Eosinophils % 1.2 %; Hematocrit 41.6 % (37.0-47.0); Lymphocytes # 3.1 10^3/uL (0.8-4.8); Lymphocytes % 38.4 %; Mean Corpuscular HGB Conc 31.3 g/dL (30.0-36.0); Mean Corpuscular Hemoglobin 28.3 pg (28.0-34.0); Mean Corpuscular Volume 90.4 fL (81-99); Mean Platelet Volume 10.1 fL (7.4-10.4); Monocytes # 0.6 10^3/uL (0.2-0.9); Monocytes % 7.7 %; Neutrophils # 4.23 10^3/uL (1.8-7.7); Neutrophils % 51.7 %; Nucleated Red Blood Cells % 0 %; Platelet Count 260 10^3/cmm (130-400); Red Cell Distribution Width 14.6 % (12.1-15.1); White Blood Count 8.2 10^3/uL (4.0-10.0)
--- NOTE | 2021-01-31 18:14 | PC.NURSE ---
Pt provided with warm blanket. Pt and updated on wait for results. Call light in reach, no needs at this time.
[2021-01-31 18:20] LABS: Alanine Aminotransferase 11 U/L (0-33); Albumin Level 4.2 g/dL (3.5-5.2); Alkaline Phosphatase 56 IU/L (35-105); Anion Gap 13.1 (5-19); Aspartate Amino Transferase 13 U/L (0-32); Blood Urea Nitrogen 9 mg/dL (6-20); Calcium 9.1 mg/dL (8.5-10.5); Carbon Dioxide 27 mmol/L (22-29); Chloride 104 mmol/L (98-107); Globulin 2.5 g/dL (1.3-4.6); Glomerular Filtration Rate 88.6 mL/min (90-130); Glucose 84 mg/dL (65-115); Osmolality Calculated 288 mOsm/kg (285-295); Potassium 4.1 mmol/L (3.5-5.1); Sodium 140 mmol/L (136-145); Total Bilirubin 0.2 mg/dL (0.15-1.2); Total Protein 6.7 g/dL (6.6-8.7); Troponin(5th) Baseline 10 ng/L (0-10)
[2021-01-31] MEDS: dexamethasone 10 mg/mL INJ IVP (18:44)
[2021-01-31] MEDS: hyDRALAzine 20 mg/mL INJ 1 mL 10 MG IVP (18:45)
--- NOTE | 2021-01-31 19:07 | ECG_ITS ---
[facility] Test Date: 2021-01-31 Pat Name: Lauryn Ho Department: Room: Gender: Female Medical Unit Secretary: : 1970 Requested By: Gurjit Garcia Order Number: [id number] Marcelino MD: Lona Gomez M.D. Measurements Intervals [place] Rate: 69 P: 50 AK: 183 QRS: 31 QRSD: 90 T: 78 QT: 391 QTc: 420 Interpretive Statements SINUS RHYTHM NONSPECIFIC T-WAVE ABNORMALITY Compared to ECG 01/31/2021 17:19:17 T-wave abnormality now present Sinus bradycardia no longer present Electronically Signed On 01-31-2021 21:26:28 CDT by Lona Gomez M.D. [id number]
[2021-01-31] MEDS: ipratropium-albuterol 3 mL Neb INHALATION (19:34)
[2021-01-31 19:41] LABS: Troponin 5 2HR 9.76 ng/L (0-10)
[2021-01-31 19:44] LABS: Troponin 5 2HR Delta -0.24 ABS# (0-10)
[2021-01-31 20:08] LABS: NT Pro B Type Natriuretic Pept 365 pg/mL (0-125)
[2021-01-31] MEDS: cloNIDine 0.1 mg Tablet PO (20:13)
[2021-01-31 20:45] LABS: D Dimer 0.32 ug/mIFEU (0-0.59)
== END 2021-01-31 21:17 | disposition home or self-care (01) ==
PROVIDERS: Family Medicine; Emergency Provider Emergency Medicine; PCP Nurse Practitioner Family
DX: J44.1 Chronic obstructive pulmonary disease with (acute) exacerbation (principal); Z79.02 Long term (current) use of antithrombotics/antiplatelets; Z86.73 Personal history of transient ischemic attack (TIA), and cerebral infarction without residual deficits; I10 Essential (primary) hypertension; Z87.891 Personal history of nicotine dependence
CPT/HCPCS: 36415; 36600; 71045; 80051; 80053; 82330; 82805; 83880; 84484; 85025; 85378; 93005; 94640; 96374; 96375; 99284; J0360; J1100

== ENCOUNTER 2021-02-02 13:11 | Outpatient (CLI) | payer MEDICARE, MEDICAID, SELFPAY ==
--- NOTE | 2021-02-02 13:18 | XR_ITS ---
WS: [id number] SHOULDER LEFT TECHNIQUE: 3 views of the left shoulder CLINICAL INFORMATION: ACUTE PAIN OF LEFT SHOULDER COMPARISON: None. FINDINGS: Advanced degenerative arthritis AC joint with hypertrophic changes. Subacromial space is preserved. M ild degenerative arthritis glenohumeral joint. Visualized left lung is normal. XR/XR shoulder LT min 2V* [id number] IMPRESSION: Advanced degenerative arthritis AC joint with hypertrophic spurring.
== END 2021-02-02 13:12 | disposition home or self-care (01) ==
PROVIDERS: PCP Nurse Practitioner Family; Visit Provider Nurse Practitioner Family
DX: M19.012 Primary osteoarthritis, left shoulder (principal)
CPT/HCPCS: 73030

== ENCOUNTER 2023-03-02 12:22 | Emergency (ER) | payer MEDICARE, SELFPAY ==
[2023-03-02 12:31] VITALS: BP 169/100; PULSE 68; RESP 16; TEMP 36.6; O2SAT 90; BMI 45.7
--- NOTE | 2023-03-02 12:59 | CTR_ITS ---
PROCEDURE INFORMATION: Exam: CT Abdomen And Pelvis With Contrast Exam date and time: 03/02/2023 1:12 PM Age: 52 years old Clinical indication: Abdominal pain; Generalized; Additional info: Left flank pain, h/o of kidney stones TECHNIQUE: Imaging protocol: Computed tomography of the abdomen and pelvis with contrast. Radiation optimization: All CT scans at this facility use at least one of these dose optimization techniques: automated exposure control; mA and/or kV adjustment per patient size (includes targeted exams where dose is matched to clinical indication); or iterative reconstruction. Contrast material: OMNI 350; Contrast volume: 100 ml; Contrast route: INTRAVENOUS (IV); REPORTING DATA: Count of CT and Cardiac NM exams in prior 12 months: This patient has received 0 known CTs and 0 known cardiac nuclear medicine studies in the 12 months prior to the current study. COMPARISON: CT kidney stone [id number] 09/26/2017 2:09 PM RADIATION DOSE METRICS: Total DLP (mGy-cm): 1196.12 FINDINGS: Lungs: Partially visualized density at the left lung base. Liver: There are multiple ill-defined low-density lesions in the right hepatic lobe some of which appear to be confluent with each other, the larger of these lesions measures 12.4 cm in the craniocaudad dimension. Findings are consistent with metastatic disease. There is a heterogeneously enhancing lesion which can not be differentiated from the inferior aspect of the right hepatic lobe and adjacent pancreatic head measuring 5.3 cm in the craniocaudad dimension. Gallbladder and bile ducts: Normal. No calcified stones. No ductal dilation. Pancreas: See Liver finding. Spleen: The spleen is mildly enlarged measuring 12.8 cm. Adrenal glands: Normal. No mass. Kidneys and ureters: There are subcentimeter bilateral renal cysts with benign features. Follow-up is not necessary. Stomach and bowel: Unremarkable. No obstruction. No mucosal thickening. Appendix: A normal appendix is identified. Intraperitoneal space: Unremarkable. No free air. No significant fluid collection. Vasculature: Multi-vessel atherosclerotic disease. Lymph nodes: Unremarkable. No enlarged lymph nodes. Urinary bladder: Unremarkable as visualized. Reproductive: There are cystic lesions in the left ovary the larger of which measures 3.3 cm. The borders of this cystic lesion are somewhat ill-defined. Bones/joints: There is an expansile lytic lesion at the posterior aspect of the L2 vertebra eroding the posterior cortex and extending posteriorly into the lumbar canal measuring 2.4 cm in AP dimension. A smaller lytic lesion is present in the T6 vertebral body. Degenerative changes are present in the visualized spine. Soft tissues: Unremarkable. CT/CT abdomen pelvis w con* [id number] IMPRESSION: 1. Multiple heterogeneously enhancing hepatic lesions consistent with metastatic disease. 2. There is a heterogeneous lesion which can not be differentiated from the inferior aspect of the right hepatic lobe and pancreatic head. Differential includes carcinoma versus lymphadenopathy. 3. There are lytic lesions in the L2 and T6 vertebral bodies consistent with bony metastases. 4. There are cystic lesions in the left ovary the larger of which measures 3.3 cm. The borders of this cystic lesion are somewhat ill-defined.Further evaluation with prompt non-emergent ultrasound or prompt non-emergent MRI is recommended to characterize. (Reference: Claude) 5. Partially visualized density at the left lung base. CT scan of the thorax is recommended for further evaluation. COMMENTS: Consistent with the [employer]'s Incidental Findings Committee white paper (J Am Lisset Radiol 2018): Any incidental renal lesion less than 1 cm or classified as too small to characterize, or any incidental cystic renal lesion characterized as simple-appearing, is likely benign. No follow-up imaging is recommended for these lesions per consensus recommendations based on imaging criteria. REFERENCES: Claude et al. Management of Incidental Adnexal Findings on CT and MRI: A White Paper of the ACR Incidental Findings Committee, J Am Lisset Radiol. 2019;17(2):248-254.
--- NOTE | 2023-03-02 13:08 | W.ED.ABDPA2 ---
HPI - Abdominal Pain General: Chief Complaint: Abdominal Pain Stated Complaint: pain in pelvic area, pt thinks kidney stone Time Seen by Provider: 03/02/23 12:36 History of Present Illness: Patient presents to the ER with complaints of bilateral flank pain x1 week left being worse than right. Patient does have a history of kidney stones. Patient rates pain 10 out of 10 currently patient denies any fever pain burning with urination. MD elicited complaint: flank pain Pertinent past history: kidney stones Onset (ago): week(s) (1 week) Pain Consistency: constant and colicky Location: L flank and R flank Severity: severe Radiation: none Migration to: no migration Exacerbating factors: nothing Relieving factors: nothing Context: history of similar episodes Review of Systems General: Reports: 10 or more systems reviewed and unremarkable except in HPI and below PFSH ED PFSH: Medical History (Updated 03/02/23 @ 15:56 by Ja Bolanos DO) Anxiety Bipolar disorder delivery delivered 1988, 1991 CVA (cerebral vascular accident) Depression Hypertension Morbid obesity Osteoarthritis Sleep apnea TIA (transient ischemic attack) Surgical History H/O adenoidectomy H/O dilation and curettage H/O tubal ligation History of left knee surgery History of tonsillectomy Family History Father CAD (coronary artery disease) Hypertension Mother Hypertension Hypothyroidism Social History Smoking and tobacco status: former smoker Alcohol intake: never Substance/Drug Use: never Household members: spouse Marital status: Current occupational status: disabled Current occupational exposures/hazards: No Do you think of yourself as: Straight/Heterosexual Lara/Orthodoxy: Roman Catholic Special lara needs: No Agree to transfusion: No Financial difficulty paying for basics: Decline to Answer Physical Exam Const: EXAM LIMITATIONS: other limitations (Patient appears to be mentally challenged) HENMT: COMMON NORMALS: normocephalic, atraumatic, hearing grossly normal bilaterally, external ears normal, Normal external nose present and moist oral mucous membranes HEAD & SCALP: normocephalic and atraumatic NOSE: Normal external nose present EXTERNAL EAR: Yes external ears normal Eye: COMMON NORMALS: Equal, round and reactive pupils present, EOMs intact bilaterally, conjunctivae normal and no scleral icterus CONJUNCTIVA: Yes conjunctivae normal PUPIL: Yes Equal, round and reactive pupils present Neck/C-Spine: COMMON NORMALS: full ROM, no lymphadenopathy, supple, no meningeal signs, no JVD and Thyroid normal THYROID: Thyroid normal Chest: COMMONS NORMALS: normal inspection of the chest and normal palpation of entire chest wall Resp: COMMON NORMALS: normal respiratory effort, No retractions, No use of accessory muscles and clear to auscultation bilaterally AUSCULTATION: clear to auscultation bilaterally Cardio: COMMON NORMALS: no JVD, regular rate, regular rhythm, S1 normal heart sound present, S2 normal heart sound present, No clicks present (Cardio) and No murmurs present (Cardio) RATE: regular rate RHYTHM: regular rhythm HEART SOUNDS: S1 normal heart sound present and S2 normal heart sound present GI: COMMON NORMALS: Normal to inspection, nondistended, normoactive bowel sounds present, Soft to palpation, non-tender, No hepatosplenomegaly present and no masses PALPATION: Yes Soft to palpation and Yes No hepatosplenomegaly present : COMMON NORMALS: Yes no CVA tenderness BLADDER/KIDNEY EXAM: Yes no CVA tenderness Back/Pelvis: COMMON NORMALS: no CVA tenderness Neuro: MENINGEAL SIGNS: Yes no meningeal signs Course Vital Signs: Vital signs: Vital Signs Temperature 97.8 F 03/02/23 12:31 Pulse Rate 60 03/02/23 14:13 Respiratory Rate 14 03/02/23 14:13 Blood Pressure 169/100 03/02/23 12:31 Pulse Oximetry 90 03/02/23 12:31 Oxygen Delivery Me thod Room Air 03/02/23 12:31 MDM - Abdominal Pain Medical Decision Making Patient presents today with history of bilateral flank pain. Patient has had kidney stones in the past and it felt similar to this. Lab work was obtained from the patient that included urine as well as imaging. These did show patient had a urinary tract infection. On the abdomen and pelvis CT showed multiple lesions consistent with metastatic disease in the liver, and the vertebral bodies of T6 and L2, possibly in the ovaries, for the contrasted CT of the chest which showed multiple pulmonary lesions consistent with metastatic disease as well as osseous metastatic disease these was discussed with the patient and family at length we will treat the patient's urinary tract infection on an outpatient basis and refer her to oncology on an outpatient basis Case management will be consulted. Medical Records I reviewed the patient's medical records. Lab Data I reviewed the patient's lab results. 03/02/23 12:50 03/02/23 12:50 Labs/Radiology: Radiology Impressions Abdomen/Pelvis CT 03/02/23 12:59 IMPRESSION: 1. Multiple heterogeneously enhancing hepatic lesions consistent with metastatic disease. 2. There is a heterogeneous lesion which can not be differentiated from the inferior aspect of the right hepatic lobe and pancreatic head. Differential includes carcinoma versus lymphadenopathy. 3. There are lytic lesions in the L2 and T6 vertebral bodies consistent with bony metastases. 4. There are cystic lesions in the left ovary the larger of which measures 3.3 cm. The borders of this cystic lesion are somewhat ill-defined.Further evaluation with prompt non-emergent ultrasound or prompt non-emergent MRI is recommended to characterize. (Reference: Claude) 5. Partially visualized density at the left lung base. CT scan of the thorax is recommended for further evaluation. COMMENTS: Consistent with the [employer] [place] [employer] [employer]'s Incidental Findings Committee white paper (J Am Lisset Radiol 2018): Any incidental renal lesion less than 1 cm or classified as too small to characterize, or any incidental cystic renal lesion characterized as simple-appearing, is likely benign. No follow-up imaging is recommended for these lesions per consensus recommendations based on imaging criteria. REFERENCES: Claude et al. Management of Incidental Adnexal Findings on CT and MRI: A White Paper of the ACR Incidental Findings Committee, J Am Lisset Radiol. 2019;17(2):248-254. ADDENDUM: 03/02/23 1426 CRITICAL RESULT: The study was personally discussed on the telephone with Ja Bach on 03/02/2023 2:22 PM CDT. The results were understood and acknowledged. Chest CT 03/02/23 14:33 IMPRESSION: 1. Multiple bilateral noncalcified pulmonary lesions consistent with metastatic disease. 2. Osseous metastatic disease as described above. There is a hairline nondisplaced pathologic fracture through a lytic lesion in the right glenoid. Laboratory Results WBC 9.6 10^3/uL (4.0-10.0) 03/02/23 12:50 RBC 4.91 10^6/uL (4.1-5.3) 03/02/23 12:50 Hgb 12.6 g/dL (11.5-15.3) 03/02/23 12:50 Hct 43.1 % (37.0-47.0) 03/02/23 12:50 MCV 87.8 fl (81-99) 03/02/23 12:50 MCH 25.7 pg (28.0-34.0) L 03/02/23 12:50 MCHC 29.2 g/dL (30.0-36.0) L 03/02/23 12:50 RDW 14.7 % (12.1-15.1) 03/02/23 12:50 Plt Count 499 10^3/cmm (130-400) H 03/02/23 12:50 MPV 10.1 fL (7.4-10.4) 03/02/23 12:50 Neut % (Auto) 54.3 % 03/02/23 12:50 Lymph % (Auto) 35.2 % 03/02/23 12:50 Gonzales % (Auto) 6.0 % 03/02/23 12:50 Eos % (Auto) 3.6 % 03/02/23 12:50 Baso % (Auto) 0.5 % 03/02/23 12:50 Neut # (Auto) 5.20 10^3/uL (1.8-7.7) 03/02/23 12:50 Lymph # (Auto) 3.4 10^3/uL (0.8-4.8) 03/02/23 12:50 Gonzales # (Auto) 0.6 10^3/uL (0.2-0.9) 03/02/23 12:50 Eos # (Auto) 0.4 10^3/uL (0.0-0.8) 03/02/23 12:50 Baso # (Auto) 0.1 10^3/uL (0.0-0.1) 03/02/23 12:50 Nucleated RBC % (auto) 0 % 03/02/23 12:50 Nucleated RBCs # 0.0 /100WBC 03/02/23 12:50 Sodium 135 mmol/L (136-145) L 03/02/23 12:50 Potassium 4.9 mmol/L (3.5-5.1) 03/02/23 12:50 Chloride 100 mmol/L (98-107) 03/02/23 12:50 Carbon Dioxide 24 mmol/L (22-29) 03/02/23 12:50 Anion Gap 15.9 (5-19) 03/02/23 12:50 BUN 13 mg/dL (6-20) 03/02/23 12:50 Creatinine 0.8 mg/dL (0.5-0.9) 03/02/23 12:50 GFR Calculation 75.3 mL/min (90-130) L 03/02/23 12:50 Glucose 94 mg/dL (65-115) 03/02/23 12:50 Calculated Osmolality 280 mOsm/kg (285-295) L 03/02/23 12:50 Calcium 9.9 mg/dL (8.5-10.5) 03/02/23 12:50 Total Bilirubin 0.2 mg/dL (0.15-1.2) 03/02/23 12:50 AST 21 U/L (0-32) 03/02/23 12:50 ALT 11 U/L (0-33) 03/02/23 12:50 Alkaline Phosphatase 72 U/L (35-105) 03/02/23 12:50 Total Protein 7.5 g/dL (6.6-8.7) 03/02/23 12:50 Albumin 3.8 g/dL (3.5-5.2) 03/02/23 12:50 Globulin 3.7 g/dL (1.3-4.6) 03/02/23 12:50 Lipase 27 U/L (13-60) 03/02/23 12:50 Urine Color Dark yellow (Yellow) 03/02/23 13:40 Urine Appearance Clear (CLEAR) 03/02/23 13:40 Urine pH 7 (5-7) 03/02/23 13:40 Ur Specific [place] 1.005 (1.005-1.030) 03/02/23 13:40 Urine Protein 1+ (Negative) H 03/02/23 13:40 Urine Glucose (UA) Norm (Normal) 03/02/23 13:40 Urine Ketones Negative (Negative) 03/02/23 13:40 Urine Blood 2+ (Negative) H 03/02/23 13:40 Urine Nitrate Positive (Negative) H 03/02/23 13:40 Urine Bilirubin 1+ (Negative) H 03/02/23 13:40 Urine Urobilinogen 4 mg/dL (Negative) H 03/02/23 13:40 Ur Leukocyte Esterase 2+ (Negative) H 03/02/23 13:40 Urine RBC 0-4 /hpf (0-2) H 03/02/23 13:40 Urine WBC 25-40 /hpf (0-5) H 03/02/23 13:40 Ur Squamous Epith Cells None /hpf (0-5) 03/02/23 13:40 Amorphous Sediment Not Reportable 03/02/23 13:40 Urine Bacteria 2+ /hpf (NONE) H 03/02/23 13:40 Discharge Plan Discharge Patient Disposition: Home Clinical Impression: Urinary tract infection Qualifiers: Urinary tract infection type: acute cystitis Hematuria presence: with hematuria Qualified Code(s): N30.01 - Acute cystitis with hematuria Metastatic disease Qualifiers: Area of secondary neoplastic involvement: unspecified site Qualified Code(s): 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 Condition: Stable Prescriptions: New hydrocodone-acetaminophen 5-325 mg tablet 1 tab PO Q8H PRN (Reason: pain) Qty: 14 0RF ciprofloxacin HCl 500 mg tablet 500 mg PO Q12H Qty: 20 0RF No Action trazodone 150 mg tablet 150 mg PO BEDTIME spironolacton-hydrochlorothiaz [Aldactazide] 25-25 mg tablet 1 tab PO DAILY metoprolol succinate 50 mg tablet extended release 24 hr 50 mg PO DAILY clopidogrel 75 mg tablet 75 mg PO DAILY hydroxyzine HCl 50 mg tablet 25 mg PO QID PRN (Reason: Anxiety) potassium chloride [Klor-Con 10] 10 mEq tablet extended release 10 meq PO DAILY losartan 100 mg tablet 100 mg PO DAILY Rx Instructions: take w/50mg to equal 150mg daily amlodipine 5 mg tablet 7.5 mg PO DAILY losartan 50 mg Tablet 50 mg PO DAILY Rx Instructions: take w/100mg to equal 150mg daily fluoxetine 40 mg capsule 40 mg PO DAILY gabapentin 600 mg tablet 600 mg PO QID ergocalciferol (vitamin D2) 1,250 mcg (50,000 unit) capsule 1,250 mcg PO Q7D Rx Instructions: on saturday albuterol sulfate 90 mcg/actuation HFA aerosol inhaler 2 puff INHALATION Q4H Discharge Orders: Discharge ED (Routine); Ordered 03/02/23 Ordered By: Ja Bolanos Patient Instructions: Urinary Tract Infection in Women (ED) Activity Restrictions/Additional Instructions: Please take all your antibiotics as directed, please take pain medicine as directed as needed for pain. You have been referred to case management please anticipate a phone call from them probably on Saturday for referral to oncology, if you have not heard from them by Saturday please call. Coding Level of Care Code ED Door Framer for Len Howard
[2023-03-02 13:14] LABS: Basophils # 0.1 10^3/uL (0.0-0.1); Basophils % 0.5 %; Eosinophils # 0.4 10^3/uL (0.0-0.8); Eosinophils % 3.6 %; Hematocrit 43.1 % (37.0-47.0); Hemoglobin 12.6 g/dL (11.5-15.3); Lymphocytes # 3.4 10^3/uL (0.8-4.8); Lymphocytes % 35.2 %; Mean Corpuscular HGB Conc 29.2 g/dL (30.0-36.0); Mean Corpuscular Hemoglobin 25.7 pg (28.0-34.0); Mean Corpuscular Volume 87.8 fl (81-99); Mean Platelet Volume 10.1 fL (7.4-10.4); Monocytes # 0.6 10^3/uL (0.2-0.9); Neutrophils % 54.3 %; Nucleated Red Blood Cells % 0 %; Platelet Count 499 10^3/cmm (130-400); Red Blood Count 4.91 10^6/uL (4.1-5.3); Red Cell Distribution Width 14.7 % (12.1-15.1); White Blood Count 9.6 10^3/uL (4.0-10.0)
[2023-03-02 13:30] LABS: Alanine Aminotransferase 11 U/L (0-33); Albumin Level 3.8 g/dL (3.5-5.2); Alkaline Phosphatase 72 U/L (35-105); Anion Gap 15.9 (5-19); Aspartate Amino Transferase 21 U/L (0-32); Blood Urea Nitrogen 13 mg/dL (6-20); Calcium 9.9 mg/dL (8.5-10.5); Carbon Dioxide 24 mmol/L (22-29); Chloride 100 mmol/L (98-107); Creatinine Clr Calc Pharmacy 97.9402; Globulin 3.7 g/dL (1.3-4.6); Glomerular Filtration Rate 75.3 mL/min (90-130); Glucose 94 mg/dL (65-115); Osmolality Calculated 280 mOsm/kg (285-295); Potassium 4.9 mmol/L (3.5-5.1); Sodium 135 mmol/L (136-145); Total Bilirubin 0.2 mg/dL (0.15-1.2); Total Protein 7.5 g/dL (6.6-8.7)
[2023-03-02] MEDS: ondansetron 2 mg/ML SDV 2 mL 4 MG IVP (13:30)
[2023-03-02] MEDS: ketorolac 30 mg/mL INJ IVP (13:30)
[2023-03-02 13:59] LABS: Specific Gravity, Urine 1.005 (1.005-1.030); Urine Appearance Clear (CLEAR); Urine Color Dark Yellow (Yellow); pH Urine 7 (5-7)
[2023-03-02 14:00] LABS: Bilirubin Urine 1+ (Negative); Blood Urine 2+ (Negative); Glucose Urine UA Norm (Normal); Ketones Urine Negative (Negative); Nitrate Urine Positive (Negative); Protein Urine 1+ (Negative); Urobilinogen Urine 4 mg/dL (Negative)
[2023-03-02 14:01] LABS: Add Urine Culture? Yes; Add Urine Microscopic? YES; Bacteria Urine 2+ /hpf; Leukocyte Esterase Urine 2+ (Negative); RBC Urine 0-4 /hpf (0-2); WBC Urine 25-40 /hpf (0-5)
[2023-03-02 14:13] VITALS: PULSE 60; RESP 14
--- NOTE | 2023-03-02 14:33 | CTR_ITS ---
PROCEDURE INFORMATION: Exam: CT Chest With Contrast; Diagnostic Exam date and time: 03/02/2023 3:12 PM Age: 52 years old Clinical indication: Other: Lung lesion, metastatic disease TECHNIQUE: Imaging protocol: Diagnostic computed tomography of the chest with contrast. Radiation optimization: All CT scans at this facility use at least one of these dose optimization techniques: automated exposure control; mA and/or kV adjustment per patient size (includes targeted exams where dose is matched to clinical indication); or iterative reconstruction. Contrast material: OMNI 350; Contrast volume: 70 ml; Contrast route: INTRAVENOUS (IV); REPORTING DATA: Count of CT and Cardiac NM exams in prior 12 months: This patient has received 0 known CTs and 0 known cardiac nuclear medicine studies in the 12 months prior to the current study. COMPARISON: CR XR chest 1V portable [id number] 01/31/2021 5:53 PM RADIATION DOSE METRICS: Total DLP (mGy-cm): 583.2 FINDINGS: Lungs: There are multiple noncalcified lesions in the bilateral lungs. The largest lesion is in the left lower lobe and measures 15 mm by 12 mm in the transverse/AP dimensions. The largest lesion in the right lung is the right lung base and measures 12 mm x 13 mm in the transverse/AP dimensions. Pleural spaces: Unremarkable. No pneumothorax. No pleural effusion. Heart: Unremarkable. No cardiomegaly. No pericardial effusion. Lymph nodes: Unremarkable. No enlarged lymph nodes. Vasculature: Unremarkable. No aortic aneurysm. Liver: Heterogeneous hepatic lesions are more optimally visualized on the CT scan of the abdomen/pelvis. Please see that report. Bones/joints: There is a lytic lesion in the right glenoid extending to the base of the coracoid process measuring 2.3 cm by 1.6 cm in the transverse/AP dimensions. A hairline nondisplaced pathologic fracture extends through this lesion. There is a lytic lesion at the left side of the T6 vertebra measuring 10 mm x 15 mm in the transverse/AP dimensions. Soft tissues: See Bones/joints finding. CT/CT chest w con* [id number] IMPRESSION: 1. Multiple bilateral noncalcified pulmonary lesions consistent with metastatic disease. 2. Osseous metastatic disease as described above. There is a hairline nondisplaced pathologic fracture through a lytic lesion in the right glenoid.
[2023-03-02 15:13] LABS: Lipase 27 U/L (13-60)
[2023-03-02] MEDS: iohexol 350 mg/mL 500 mL Btl (per mL) IV (15:17)
--- NOTE | 2023-03-04 08:53 | DCPLANNER ---
Addendum entered by Joanne Ordonez 03/07/23 13:37: manager inpatient received the following message from the oncology clinic regarding follow up appointment: Spoke with [facility], patient's primary care office, and let them know Dr. Leo reported the patient will need an ultrasound-directed needle biopsy of the liver. Tere verbalized they will get it ordered and will give us the information once available. Provided our fax number and phone number for her. Original Note: manager inpatient had message to schedule a follow up appointment for patient with oncology. manager inpatient sent patients information to the front office staff at oncology. Patients information will be printed and reviewed. Clinic will call patient with appointment information.
--- NOTE | 2023-03-08 11:55 | DCPLANNER ---
Addendum entered by Joanne Ordonez 03/08/23 11:58: Patient called telephonic case manager back and stated that she sees Maritza Ordonez in [place]. Original Note: animal rides manager called patient due to no primary care physician - no answer at this time.
== END 2023-03-02 16:48 | disposition home or self-care (01) ==
PROVIDERS: Emergency Provider Emergency Medicine; PCP Nurse Practitioner Family
DX: N30.01 Acute cystitis with hematuria (principal); M84.40XA Pathological fracture, unspecified site, initial encounter for fracture; C79.9 Secondary malignant neoplasm of unspecified site; Z79.02 Long term (current) use of antithrombotics/antiplatelets; Z87.891 Personal history of nicotine dependence; Z86.73 Personal history of transient ischemic attack (TIA), and cerebral infarction without residual deficits; I10 Essential (primary) hypertension
CPT/HCPCS: 71260; 74177; 80053; 81001; 83690; 85025; 87077; 87086; 87186; 96374; 96375; 99285; J1885; J2405; Q9967

== ENCOUNTER 2023-03-11 20:35 | Emergency (ER) | payer MEDICARE, SELFPAY ==
[2023-03-11 20:42] VITALS: BP 125/78; PULSE 85; RESP 14; TEMP 36.4; O2SAT 95; BMI 51.2
--- NOTE | 2023-03-11 22:12 | ED_ITS ---
HPI - Back Pain/Injury General: Chief Complaint: Back Pain/Injury Stated Complaint: Cancer\Back Pain Time Seen by Provider: 03/11/23 22:12 History of Present Illness: 52-year-old female comes in today with uncontrolled back pain. Patient recently was found that she has metastatic disease affecting T6 and a lumbar vertebra along with some involvement of the ovary. Patient appears in moderate to severe pain. Patient appears nontoxic. Patient reports symptoms of pain and dysuria. Patient recently has been placed on antibiotics for a UTI. Associated symptoms: Deny fever(s) Review of Systems Const: Denies: fever(s) Card: Denies: chest pain Resp: Denies: dyspnea Musc: Reports: back pain PFS ED PFSH: Medical History (Updated 03/12/23 @ 01:10 by KALE Bhandari) Anxiety Bipolar disorder delivery delivered 1991 CVA (cerebral vascular accident) Depression Hypertension Morbid obesity Osteoarthritis Sleep apnea TIA (transient ischemic attack) Surgical History H/O adenoidectomy H/O dilation and curettage H/O tubal ligation History of left knee surgery History of tonsillectomy Family History Father CAD (coronary artery disease) Hypertension Mother Hypertension Hypothyroidism Social History Smoking and tobacco status: former smoker Alcohol intake: never Substance/Drug Use: never Household members: spouse Marital status: Current occupational status: disabled Current occupational exposures/hazards: No Do you think of yourself as: Straight/Heterosexual Lara/Faith: Sabianism Special lara needs: No Agree to transfusion: No Financial difficulty paying for basics: Decline to Answer Physical Exam Const: COMMON NORMALS: alert HENMT: COMMON NORMALS: normocephalic HEAD & SCALP: normocephalic Neck/C-Spine: COMMON NORMALS: full ROM Resp: COMMON NORMALS: normal respiratory effort and clear to auscultation bilaterally AUSCULTATION: clear to auscultation bilaterally Cardio: COMMON NORMALS: regular rate RATE: regular rate GI: COMMON NORMALS: Soft to palpation PALPATION: Yes Soft to palpation Back/Pelvis: THORACIC SPINE/UPPER BACK: Yes paraspinal muscle tenderness LUMBAR SPINE/LOWER BACK: Yes paraspinal muscle tenderness Extremity: COMMON NORMALS: no pedal edema Neuro: SENSORIUM/ORIENTATION: Yes alert Skin: COMMON NORMALS: turgor normal GENERAL SKIN EXAM: turgor normal Course Vital Signs: Vital signs: Vital Signs Temperature 97.6 F 03/11/23 20:42 Pulse Rate 65 03/12/23 00:19 Respiratory Rate 16 03/12/23 01:59 Blood Pressure 154/55 03/12/23 01:59 Pulse Oximetry 92 03/12/23 01:59 Oxygen Delivery Me thod Room Air 03/12/23 00:19 MDM - Back Pain/Injury Medical Decision Making 52-year-old female comes in today with complaints of uncontrolled back pain. 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 Patient various lesions noted in the ovary and liver and she is supposed to be being set up for a biopsy of the liver. Patient came in today though due to uncontrolled back pain. Differential diagnosis includes but not limited to bowel obstruction, renal calculi, hydronephrosis of the kidney, vertebral fracture, pain related to metastatic disease. Laboratory values noted a increase in the white count at 15,000, creatinine was 1.0, urine was concentrated. Patient was appropriately treated for a urinary tract infection with Cipro. No significant nitrates or large amounts of white blood cells were noted. Urine was sent for culture. CT of the abdomen pelvis noted no acute abnormality and no changes significant from previous exam. Patient's pain was improved with Dilaudid 1 mg and was given half a liter of fluids along with 4 of Zofran. Patient needs to follow-up regarding biopsy of the liver as recommended by Dr. Leo. Review of the record noted no time on the interventional radiology schedule for biopsy. I recommended the family talked with her primary care provider to see if there was a time scheduled. Patient was written for hydrocodone 7-1/2 mg 1 every 8 hours as needed severe pain #12. Patient should also talk with primary care regarding pain management. Patient and family reported understanding. Labs 03/11/23 23:02 03/11/23 23:02 Radiology Impressions Abdomen/Pelvis CT 03/11/23 23:50 IMPRESSION: 1. Negative for acute abdominopelvic pathology. 2. Metastatic disease redemonstrated. Laboratory Results WBC 15.8 10^3/uL (4.0-10.0) H 03/11/23 23:02 RBC 5.08 10^6/uL (4.1-5.3) 03/11/23 23:02 Hgb 13.1 g/dL (11.5-15.3) 03/11/23 23:02 Hct 43.7 % (37.0-47.0) 03/11/23 23:02 MCV 86.0 fl (81-99) 03/11/23 23:02 MCH 25.8 pg (28.0-34.0) L 03/11/23 23:02 MCHC 30.0 g/dL (30.0-36.0) 03/11/23 23: RDW 15.7 % (12.1-15.1) H 03/11/23 23: Plt Count 429 10^3/cmm (130-400) H 03/11/23 23:02 MPV 9.9 fL (7.4-10.4) 03/11/23 23:02 Neut % (Auto) 73.0 % 03/11/23 23:02 Lymph % (Auto) 19.5 % 03/11/23 23:02 Becker % (Auto) 5.8 % 03/11/23 23:02 Eos % (Auto) 0.8 % 03/11/23 23: Baso % (Auto) 0.4 % 03/11/23 23:02 Neut # (Auto) 11.55 10^3/uL (1.8-7.7) H 03/11/23 23:02 Lymph # (Auto) 3.1 10^3/uL (0.8-4.8) 03/11/23 23:02 Becker # (Auto) 0.9 10^3/uL (0.2-0.9) 03/11/23 23:02 Eos # (Auto) 0.1 10^3/uL (0.0-0.8) 03/11/23 23: Baso # (Auto) 0.1 10^3/uL (0.0-0.1) 03/11/23 23:02 Nucleated RBC % (auto) 0 % 03/11/23 23: Nucleated RBCs # 0.0 /100WBC 03/11/23 23: Sodium 135 mmol/L (136-145) L 03/11/23 23:02 Potassium 3.9 mmol/L (3.5-5.1) 03/11/23 23:02 Chloride 98 mmol/L (98-107) 03/11/23 23:02 Carbon Dioxide 25 mmol/L (22-29) 03/11/23 23:02 Anion Gap 15.9 (5-19) 03/11/23 23:02 BUN 25 mg/dL (6-20) H 03/11/23 23:02 Creatinine 1.0 mg/dL (0.5-0.9) H 03/11/23 23:02 GFR Calculation 58.2 mL/min (90-130) L 03/11/23 23:02 Glucose 101 mg/dL (65-115) 03/11/23 23:02 Calculated Osmolality 285 mOsm/kg (285-295) 03/11/23 23:02 Calcium 9.7 mg/dL (8.5-10.5) 03/11/23 23:02 Total Bilirubin 0.2 mg/dL (0.15-1.2) 03/11/23 23:02 AST 22 U/L (0-32) 03/11/23 23:02 ALT 14 U/L (0-33) 03/11/23 23:02 Alkaline Phosphatase 80 U/L (35-105) 03/11/23 23:02 Total Protein 7.6 g/dL (6.6-8.7) 03/11/23 23:02 Albumin 4.0 g/dL (3.5-5.2) 03/11/23 23:02 Globulin 3.6 g/dL (1.3-4.6) 03/11/23 23:02 Urine Color Yellow (Yellow) 03/11/23 23:48 Urine Appearance Hazy (CLEAR) A 03/11/23 23:48 Urine pH 5 (5-7) 03/11/23 23:48 Ur Specific [place] 1.025 (1.005-1.030) 03/11/23 23:48 Urine Protein 1+ (Negative) H 03/11/23 23:48 Urine Glucose (UA) Norm (Normal) 03/11/23 23:48 Urine Ketones Negative (Negative) 03/11/23 23:48 Urine Blood 3+ (Negative) H 03/11/23 23:48 Urine Nitrate Negative (Negative) 03/11/23 23:48 Urine Bilirubin Neg (Negative) 03/11/23 23:48 Urine Urobilinogen Norm mg/dL (Negative) 03/11/23 23:48 Ur Leukocyte Esterase Trace (Negative) H 03/11/23 23:48 Urine RBC 50-80 /hpf (0-2) H 03/11/23 23:48 Urine WBC 25-40 /hpf (0-5) H 03/11/23 23:48 Ur Squamous Epith Cells 15-25 /hpf (0-5) H 03/11/23 23:48 Amorphous Sediment Not Reportable 03/11/23 23:48 Urine Bacteria 1+ /hpf (NONE) H 03/11/23 23:48 Hyaline Casts 5-10 /lpf H 03/11/23 23:48 Discharge Plan Discharge Patient Disposition: Home Clinical Impression: Back pain, Metastasis to spinal column Condition: Stable Prescriptions: New hydrocodone-acetaminophen 7.5-325 mg tablet 1 tab PO Q8H PRN (Reason: pain (scale score 7-10)) Qty: 12 0RF No Action trazodone 150 mg tablet 150 mg PO BEDTIME spironolacton-hydrochlorothiaz [Aldactazide] 25-25 mg tablet 1 tab PO DAILY metoprolol succinate 50 mg tablet extended release 24 hr 50 mg PO DAILY clopidogrel 75 mg tablet 75 mg PO DAILY hydroxyzine HCl 50 mg tablet 25 mg PO QID PRN (Reason: Anxiety) potassium chloride [Klor-Con 10] 10 mEq tablet extended release 10 meq PO DAILY losartan 100 mg tablet 100 mg PO DAILY Rx Instructions: take w/50mg to equal 150mg daily amlodipine 5 mg tablet 7.5 mg PO DAILY losartan 50 mg Tablet 50 mg PO DAILY Rx Instructions: take w/100mg to equal 150mg daily fluoxetine 40 mg capsule 40 mg PO DAILY gabapentin 600 mg tablet 600 mg PO QID ergocalciferol (vitamin D2) 1,250 mcg (50,000 unit) capsule 1,250 mcg PO Q7D Rx Instructions: on saturday albuterol sulfate 90 mcg/actuation HFA aerosol inhaler 2 puff INHALATION Q4H hydrocodone-acetaminophen 5-325 mg tablet 1 tab PO Q8H PRN (Reason: pain) Qty: 14 0RF ciprofloxacin HCl 500 mg tablet 500 mg PO Q12H Qty: 20 0RF Discharge Orders: Discharge ED (Routine); Ordered 03/12/23 Ordered By: Michael Garcia Discharge Diet: Usual diet Discharge Activity: Increase activity as tolerated Patient Instructions: Cancer Pain, Opioid Safety, Pain Management Activity Restrictions/Additional Instructions: Use medication regularly to help control pain. Follow-up with primary care for continue medications for pain. Continue with appointments as scheduled for further evaluation abnormalities from prior exams. Coding Level of Care Code ED Telecom Sales Consultant for Len Howard
[2023-03-11 23:18] LABS: Basophils # 0.1 10^3/uL (0.0-0.1); Basophils % 0.4 %; Eosinophils # 0.1 10^3/uL (0.0-0.8); Eosinophils % 0.8 %; Hematocrit 43.7 % (37.0-47.0); Hemoglobin 13.1 g/dL (11.5-15.3); Lymphocytes # 3.1 10^3/uL (0.8-4.8); Lymphocytes % 19.5 %; Mean Corpuscular Hemoglobin 25.8 pg (28.0-34.0); Mean Platelet Volume 9.9 fL (7.4-10.4); Monocytes # 0.9 10^3/uL (0.2-0.9); Monocytes % 5.8 %; Neutrophils # 11.55 10^3/uL (1.8-7.7); Nucleated Red Blood Cells % 0 %; Platelet Count 429 10^3/cmm (130-400); Red Blood Count 5.08 10^6/uL (4.1-5.3); Red Cell Distribution Width 15.7 % (12.1-15.1); White Blood Count 15.8 10^3/uL (4.0-10.0)
[2023-03-11] MEDS: sodium chloride 0.9% 500 ML 999 ML IV (23:31)
[2023-03-11 23:33] LABS: Alanine Aminotransferase 14 U/L (0-33); Alkaline Phosphatase 80 U/L (35-105); Anion Gap 15.9 (5-19); Aspartate Amino Transferase 22 U/L (0-32); Blood Urea Nitrogen 25 mg/dL (6-20); Calcium 9.7 mg/dL (8.5-10.5); Carbon Dioxide 25 mmol/L (22-29); Chloride 98 mmol/L (98-107); Globulin 3.6 g/dL (1.3-4.6); Glomerular Filtration Rate 58.2 mL/min (90-130); Glucose 101 mg/dL (65-115); Osmolality Calculated 285 mOsm/kg (285-295); Potassium 3.9 mmol/L (3.5-5.1); Sodium 135 mmol/L (136-145); Total Bilirubin 0.2 mg/dL (0.15-1.2); Total Protein 7.6 g/dL (6.6-8.7)
[2023-03-11] MEDS: ondansetron 2 mg/ML SDV 2 mL 4 MG IVP (23:34)
[2023-03-11] MEDS: HYDROmorphone 1 mg/mL INJ 1 mL IVP (23:35)
[2023-03-11 23:49] VITALS: BP 115/77; PULSE 70; RESP 16; O2SAT 95
--- NOTE | 2023-03-11 23:50 | CTR_ITS ---
PROCEDURE INFORMATION: Exam: CT Abdomen And Pelvis Without Contrast Exam date and time: 03/12/2023 12:03 AM Age: 52 years old Clinical indication: Abdominal pain; Flank; Other: Bilat; Prior surgery; Surgery date: 6+ months; Surgery type: Btl; Additional info: Dysuria, metastatic CA, HX of renal calculi TECHNIQUE: Imaging protocol: Computed tomography of the abdomen and pelvis without contrast. Radiation optimization: All CT scans at this facility use at least one of these dose optimization techniques: automated exposure control; mA and/or kV adjustment per patient size (includes targeted exams where dose is matched to clinical indication); or iterative reconstruction. REPORTING DATA: Count of CT and Cardiac NM exams in prior 12 months: This patient has received 2 known CTs and 0 known cardiac nuclear medicine studies in the 12 months prior to the current study. COMPARISON: CT abdomen pelvis w con* [id number] 03/02/2023 1:12 PM RADIATION DOSE METRICS: Total DLP (mGy-cm): 1205.98 FINDINGS: Lungs: Numerous bilateral noncalcified pulmonary nodules are redemonstrated. Liver: Infiltrative right hepatic lobe masses are redemonstrated. Gallbladder and bile ducts: Normal. No calcified stones. No ductal dilation. Pancreas: Normal. No ductal dilation. Spleen: Normal. No splenomegaly. Adrenal glands: Normal. No mass. Kidneys and ureters: Normal. No hydronephrosis. Negative for stones. Stomach and bowel: Unremarkable. No obstruction. No mucosal thickening. Appendix: Normal appendix. Intraperitoneal space: Unremarkable. No free air. No significant fluid collection. Vasculature: Unremarkable. No abdominal aortic aneurysm. Lymph nodes: Julia hepatis region lymphadenopathy within upper abdomen redemonstrated. Urinary bladder: Unremarkable as visualized. Reproductive: Small cystic changes of the left ovary are redemonstrated stable from prior. Unremarkable uterus. Unremarkable right adnexa. Bones/joints: Lytic bone lesion of the posterior L2 vertebral body is redemonstrated. No change from prior. Soft tissues: Unremarkable. CT/CT kidney stone [id number] IMPRESSION: 1. Negative for acute abdominopelvic pathology. 2. Metastatic disease redemonstrated.
[2023-03-12] LABS: Add Urine Microscopic? YES; Bilirubin Urine Neg (Negative); Blood Urine 3+ (Negative); Glucose Urine UA Norm (Normal); Ketones Urine Negative (Negative); Leukocyte Esterase Urine Trace (Negative); Nitrate Urine Negative (Negative); Protein Urine 1+ (Negative); Specific Gravity, Urine 1.025 (1.005-1.030); Urine Appearance Hazy (CLEAR); Urine Color Yellow (Yellow); Urobilinogen Urine Norm (Negative); pH Urine 5 (5-7)
[2023-03-12 00:01] LABS: RBC Urine 50-80 /hpf (0-2); Squamous Epithelial Cell Urine 15-25 /hpf (0-5)
[2023-03-12 00:02] LABS: WBC Urine 25-40 /hpf (0-5)
[2023-03-12 00:03] LABS: Add Urine Culture? No; Bacteria Urine 1+ /hpf
[2023-03-12 00:19] VITALS: BP 135/110; PULSE 65; RESP 16; O2SAT 92
--- NOTE | 2023-03-12 00:20 | PC.NURSE ---
Nurse went in to room to check on pt after pt returned from CT. Pt was satting 88% on the monitor. Nurse went to put pt back on 2L NC as before, but pt refused. Pt stated I feel so great right now, thank you. When the nurse went to elevate HOB, pt declined and wished to stay laying flat. Proivider notified. Will continue to monitor.
[2023-03-12 01:00] VITALS: BP 127/57; RESP 16; O2SAT 90
[2023-03-12 01:59] VITALS: BP 154/55; RESP 16; O2SAT 92
[2023-03-12] MEDS: HYDROcodone-acetaminophen 7.5-325 mg Tablet 2 TAB PO (02:34)
--- NOTE | 2023-03-12 02:49 | PC.NURSE ---
Per instruction from provider, RN gave both tablets of hydrocodone 7.5 - 325 mg at 0245 to pt to be taken at home. Pt and family members verbalized understanding.
[2023-03-12 02:50] VITALS: BP 154/55; PULSE 65; RESP 16; TEMP 36.4; O2SAT 92
[2023-03-12 02:53] VITALS: BP 154/55; PULSE 65; RESP 16; TEMP 36.4; O2SAT 92
--- NOTE | 2023-03-15 11:37 | DCPLANNER ---
trade manager called patient due to no primary care physician - patient sees Maritza Ordonez in [place].
== END 2023-03-12 02:53 | disposition home or self-care (01) ==
PROVIDERS: Emergency Provider Nurse Practitioner Family; PCP Nurse Practitioner Family
DX: M54.50 Low back pain, unspecified (principal); M54.6 Pain in thoracic spine; C79.51 Secondary malignant neoplasm of bone
CPT/HCPCS: 51798; 74176; 80053; 81001; 81003; 85025; 96361; 96374; 96375; 99285; J1170; J2405; J7040

== ENCOUNTER 2023-03-19 14:50 | Emergency (ER) | payer MEDICARE, SELFPAY ==
--- NOTE | 2023-03-19 14:55 | ECG_ITS ---
[facility] Test Date: 2023-03-19 Pat Name: Lauryn Ho Department: Room: Gender: Female Station Engineer Chief: : 1970 Requested By: Gurjit Garcia Order Number: [id number] Reading MD: Sha Knapp M.D. Measurements Intervals [place] Rate: 92 P: -2 [place]: 147 QRS: -10 QRSD: 82 T: 69 QT: 345 QTc: 427 Interpretive Statements SINUS RHYTHM NONSPECIFIC ST & T-WAVE ABNORMALITY Compared to ECG 01/31/2021 19:23:43 No significant changes Electronically Signed On 03-19-2023 16:36:46 CDT by Sha Knapp M.D. [email or web address]
--- NOTE | 2023-03-19 14:55 | XRR_ITS ---
PROCEDURE INFORMATION: Exam: XR Chest Exam date and time: 03/19/2023 3:07 PM Age: 52 years old Clinical indication: Cough and dyspnea; Additional info: Dyspnea/cough TECHNIQUE: Imaging protocol: Radiologic exam of the chest. Views: 1 view. COMPARISON: CT chest w con* [id number] 03/02/2023 3:12 PM FINDINGS: Lungs: No consolidation. Pleural spaces: No pleural effusion. No pneumothorax. Heart/Mediastinum: No cardiomegaly. Bones/joints: Unremarkable. XR/XR chest 1V portable [id number] IMPRESSION: No acute findings.
[2023-03-19 14:59] VITALS: BP 136/102; PULSE 90; RESP 18; TEMP 36.6; O2SAT 93; BMI 60.3
--- NOTE | 2023-03-19 15:44 | W.ED.WEAKNES ---
HPI - Weakness General: Chief complaint: Weakness Stated complaint: weakness Time Seen by Provider: 03/19/23 14:54 Source: patient Mode of arrival: ambulatory History of Present Illness: 52-year-old female presents emergency room with complaint of severe back pain. Patient was recently seen in the emergency room found to have abnormal CT abdomen and pelvis with what appears to be multiple metastatic lesions including to the back. She is complaining of severe back pain right now no urinary retention or fecal incontinence. Her pain medications at home did not seem to be helping. She has been referred to oncology but has not yet seen them does not have a definitive diagnosis for the abnormal CT. MD Complaint: difficulty walking (Low back pain severe) Onset (ago): minute(s) Duration: constant Location: generalized Migration: none Relieving factors: none Exacerbating factors: none Associated symptoms: Denies chest pain, chills, confusion, melena, decreased appetite, diaphoresis, dysuria, easy bruising, fever(s), headache(s), myalgias, nausea, rash, short of breath, syncope or vomiting Review of Systems Const: Denies: fever(s), chills or diaphoresis Card: Denies: chest pain or syncope GI: Denies: nausea, vomiting or melena : Denies: dysuria Neuro: Denies: headache(s) or confusion Jm/Lymph: Denies: easy bruising [facility] ED PFSH: Medical History (Updated 03/20/23 @ 00:01 by FRANNIE Cleaning) Anxiety Bipolar disorder delivery delivered 1988, 1991 CVA (cerebral vascular accident) Depression Hypertension Morbid obesity Osteoarthritis Sleep apnea TIA (transient ischemic attack) Surgical History H/O adenoidectomy H/O dilation and curettage H/O tubal ligation History of left knee surgery History of tonsillectomy Family History Father CAD (coronary artery disease) Hypertension Mother Hypertension Hypothyroidism Social History Smoking and tobacco status: former smoker Alcohol intake: never Substance/Drug Use: never Household members: spouse Marital status: Current occupational status: disabled Current occupational exposures/hazards: No Do you think of yourself as: Straight/Heterosexual Lara/Worship: Oriental Orthodox Special lara needs: No Agree to transfusion: No Financial difficulty paying for basics: Decline to Answer Physical Exam Const: GENERAL APPEARANCE: cooperative ORIENTATION/CONSCIOUSNESS: Yes awake, Yes oriented to person, Yes oriented to place and Yes oriented to time HENMT: COMMON NORMALS: normocephalic, atraumatic and hearing grossly normal bilaterally HEAD & SCALP: normocephalic and atraumatic Resp: COMMON NORMALS: normal respiratory effort, No retractions, No use of accessory muscles and clear to auscultation bilaterally AUSCULTATION: clear to auscultation bilaterally Cardio: COMMON NORMALS: regular rate, regular rhythm and No murmurs present (Cardio) RATE: regular rate RHYTHM: regular rhythm GI: COMMON NORMALS: Soft to palpation and No hepatosplenomegaly present AUSCULTATION: Yes normoactive bowel sounds PALPATION: Yes Soft to palpation, No Tenderness to palpation present (GI), No Guarding due to palpation present (GI) and Yes No hepatosplenomegaly present Extremity: COMMON NORMALS: normal to inspection, capillary refill normal, no clubbing, cyanosis or edema, no calf tenderness and no pedal edema Neuro: SENSORIUM/ORIENTATION: Yes oriented to person, Yes oriented to place and Yes oriented to time Skin: COMMON NORMALS: no rashes or lesions noted GENERAL SKIN EXAM: no rashes or lesions noted Course Vital Signs: Vital signs: Vital Signs Temperature 97.8 F 03/19/23 14:59 Pulse Rate 90 03/19/23 14:59 Respiratory Rate 18 03/19/23 17:57 Blood Pressure 136/102 03/19/23 14:59 Pulse Oximetry 94 03/19/23 15:50 Oxygen Delivery Me thod Room Air 03/19/23 14:59 MDM - Weakness Medical Decision Making Back pain improved with medication given here will discharge home on Percocet for pain. Follow-up with oncology as soon as she is able. Will ask case management to check on the referral. Medical Records I reviewed the patient's medical records. Lab Data I reviewed the patient's lab results. 03/19/23 15:28 03/19/23 15:28 Radiology Impressions Chest X-Ray 03/19/23 14:55 IMPRESSION: No acute findings. Laboratory Results WBC 16.0 10^3/uL (4.0-10.0) H 03/19/23 15: RBC 5.28 10^6/uL (4.1-5.3) 03/19/23 15: Hgb 13.6 g/dL (11.5-15.3) 03/19/23 15: Hct 44.2 % (37.0-47.0) 03/19/23 15: MCV 83.7 fl (81-99) 03/19/23: MCH 25.8 pg (28.0-34.0) L 03/19/23 15: MCHC 30.8 g/dL (30.0-36.0) 03/19/23: RDW 15.8 % (12.1-15.1) H 03/19/23: Plt Count 585 10^3/cmm (130-400) H 03/19/23: MPV 9.6 fL (7.4-10.4) 03/19/23: Neut % (Auto) 72.0 % 03/19/23: Lymph % (Auto) 20.4 % 03/19/23: Garza % (Auto) 5.3 % 03/19/23: Eos % (Auto) 1.4 % 03/19/23 Baso % (Auto) 0.4 % 03/19/23: Neut # (Auto) 11.47 10^3/uL (1.8-7.7) H 03/19/23: Lymph # (Auto) 3.3 10^3/uL (0.8-4.8) 03/19/23: Garza # (Auto) 0.8 10^3/uL (0.2-0.9) 03/19/23: Eos # (Auto) 0.2 10^3/uL (0.0-0.8) 03/19/23: Baso # (Auto) 0.1 10^3/uL (0.0-0.1) 03/19/23: Nucleated RBC % (auto) 0 % 03/19/23: Nucleated RBCs # 0.0 /100WBC 03/19/23 15: Sodium 136 mmol/L (136-145) 03/19/23 15: Potassium 3.9 mmol/L (3.5-5.1) 03/19/23 15: Chloride 99 mmol/L (98-107) 03/19/23 15: Carbon Dioxide 23 mmol/L (22-29) 03/19/23 15: Anion Gap 17.9 (5-19) 03/19/23 15: BUN 25 mg/dL (6-20) H 03/19/23 15: Creatinine 0.9 mg/dL (0.5-0.9) 03/19/23 15: GFR Calculation 65.8 mL/min (90-130) L 03/19/23 15: Glucose 96 mg/dL (65-115) 03/19/23: Calculated Osmolality 286 mOsm/kg (285-295) 03/19/23 15: Calcium 10.0 mg/dL (8.5-10.5) 03/19/23: Magnesium 2.1 mg/dL (1.7-2.3) 03/19/23 15: Total Bilirubin 0.2 mg/dL (0.15-1.2) 03/19/23 15: AST 19 U/L (0-32) 03/19/23 15: ALT 10 U/L (0-33) 03/19/23 15: Alkaline Phosphatase 80 U/L (35-105) 03/19/23 15: Creatine Kinase 25 U/L (26-192) L 03/19/23 15: NT-Pro-B Natriuret Pep 291 pg/mL (0-125) H 03/19/23 15: Total Protein 7.3 g/dL (6.6-8.7) 03/19/23 15: Albumin 3.9 g/dL (3.5-5.2) 03/19/23 15: Globulin 3.4 g/dL (1.3-4.6) 03/19/23 15: Lipase 20 U/L (13-60) 03/19/23 15:28 Urine Color Yellow (Yellow) 03/19/23 15: Urine Appearance Cloudy (CLEAR) A 03/19/23 15: Urine pH 5 (5-7) 03/19/23 15:28 Ur Specific [place] 1.025 (1.005-1.030) 03/19/23 15:28 Urine Protein 1+ (Negative) H 03/19/23 15:28 Urine Glucose (UA) Norm (Normal) 03/19/23 15:28 Urine Ketones Negative (Negative) 03/19/23 15:28 Urine Blood 2+ (Negative) H 03/19/23 15:28 Urine Nitrate Negative (Negative) 03/19/23 15:28 Urine Bilirubin 1+ (Negative) H 03/19/23 15:28 Urine Urobilinogen Norm mg/dL (Negative) 03/19/23 15:28 Ur Leukocyte Esterase 2+ (Negative) H 03/19/23 15:28 Urine RBC 0-4 /hpf (0-2) H 03/19/23 15:28 Urine WBC 5-10 /hpf (0-5) H 03/19/23 15:28 Ur Squamous Epith Cells 0-4 /hpf (0-5) H 03/19/23 15:28 Amorphous Sediment Not Reportable 03/19/23 15:28 Urine Bacteria Trace /hpf (NONE) 03/19/23 15:28 Urine Mucus Trace /hpf 03/19/23 15:28 Discharge Plan Discharge Patient Disposition: Home Clinical Impression: Metastasis to spinal column Condition: Stable Prescriptions: New Percocet 5-325 mg tablet 1 tab PO Q6H PRN (Reason: pain) Qty: 20 0RF promethazine 25 mg tablet 25 mg PO Q6H PRN (Reason: nausea and vomiting) Qty: 20 0RF No Action trazodone 150 mg tablet 150 mg PO BEDTIME spironolacton-hydrochlorothiaz [Aldactazide] 25-25 mg tablet 1 tab PO DAILY metoprolol succinate 50 mg tablet extended release 24 hr 50 mg PO DAILY clopidogrel 75 mg tablet 75 mg PO DAILY hydroxyzine HCl 50 mg tablet 25 mg PO QID PRN (Reason: Anxiety) potassium chloride [Klor-Con 10] 10 mEq tablet extended release 10 meq PO DAILY losartan 100 mg tablet 100 mg PO DAILY Rx Instructions: take w/50mg to equal 150mg daily amlodipine 5 mg tablet 7.5 mg PO DAILY losartan 50 mg Tablet 50 mg PO DAILY Rx Instructions: take w/100mg to equal 150mg daily fluoxetine 40 mg capsule 40 mg PO DAILY gabapentin 600 mg tablet 600 mg PO QID ergocalciferol (vitamin D2) 1,250 mcg (50,000 unit) capsule 1,250 mcg PO Q7D Rx Instructions: on saturday albuterol sulfate 90 mcg/actuation HFA aerosol inhaler 2 puff INHALATION Q4H hydrocodone-acetaminophen 5-325 mg tablet 1 tab PO Q8H PRN (Reason: pain) Qty: 14 0RF ciprofloxacin HCl 500 mg tablet 500 mg PO Q12H Qty: 20 0RF hydrocodone-acetaminophen 7.5-325 mg tablet 1 tab PO Q8H PRN (Reason: pain (scale score 7-10)) Qty: 12 0RF Discharge Orders: Discharge ED (Routine); Ordered 03/19/23 Ordered By: Gurjit Shaw Referrals: Maritza Ordonez [Primary Care Provider] - Discharge Diet: Usual diet Discharge Activity: Increase activity as tolerated Patient Instructions: Opioid Safety, Pain Management Activity Restrictions/Additional Instructions: You are seen today with complaint of back pain. Suspect your back pain is due to the metastatic lesions in the spinal column. We will give you a stronger pain medication to use and lieu of hydrocodone also gave you nausea medicine to use. Follow-up with oncology as soon as you are able Case management will check on the scheduling for your oncology referral. Coding Level of Care Code ED Assistant Professor Of Dietetics for Len Howard
[2023-03-19 15:45] LABS: Basophils # 0.1 10^3/uL (0.0-0.1); Basophils % 0.4 %; Eosinophils # 0.2 10^3/uL (0.0-0.8); Eosinophils % 1.4 %; Hematocrit 44.2 % (37.0-47.0); Hemoglobin 13.6 g/dL (11.5-15.3); Lymphocytes # 3.3 10^3/uL (0.8-4.8); Lymphocytes % 20.4 %; Mean Corpuscular HGB Conc 30.8 g/dL (30.0-36.0); Mean Corpuscular Hemoglobin 25.8 pg (28.0-34.0); Mean Corpuscular Volume 83.7 fl (81-99); Mean Platelet Volume 9.6 fL (7.4-10.4); Monocytes # 0.8 10^3/uL (0.2-0.9); Monocytes % 5.3 %; Neutrophils # 11.47 10^3/uL (1.8-7.7); Nucleated Red Blood Cells % 0 %; Platelet Count 585 10^3/cmm (130-400); Red Blood Count 5.28 10^6/uL (4.1-5.3); Red Cell Distribution Width 15.8 % (12.1-15.1)
[2023-03-19] MEDS: sodium chloride 0.9% 1,000 ML 999 ML IV (15:47)
[2023-03-19 15:50] VITALS: O2SAT 94
--- NOTE | 2023-03-19 16:05 | PC.NURSE ---
pt is refusing to keep cardiac leads, SpO2 pulse ox, and blood pressure cuff on. Pt continues to take it off and says, keep that crap off of me, I'm in pain! notified.
[2023-03-19 16:16] LABS: Alanine Aminotransferase 10 U/L (0-33); Albumin Level 3.9 g/dL (3.5-5.2); Alkaline Phosphatase 80 U/L (35-105); Anion Gap 17.9 (5-19); Aspartate Amino Transferase 19 U/L (0-32); Blood Urea Nitrogen 25 mg/dL (6-20); Carbon Dioxide 23 mmol/L (22-29); Chloride 99 mmol/L (98-107); Creatinine Clr Calc Pharmacy 103.8127; Globulin 3.4 g/dL (1.3-4.6); Glomerular Filtration Rate 65.8 mL/min (90-130); Glucose 96 mg/dL (65-115); Lipase 20 U/L (13-60); Magnesium 2.1 mg/dL (1.7-2.3); NT Pro B Type Natriuretic Pept 291 pg/mL (0-125); Osmolality Calculated 286 mOsm/kg (285-295); Potassium 3.9 mmol/L (3.5-5.1); Sodium 136 mmol/L (136-145); Total Bilirubin 0.2 mg/dL (0.15-1.2); Total Protein 7.3 g/dL (6.6-8.7)
[2023-03-19 16:17] LABS: Urine Appearance Cloudy (CLEAR); Urine Color Yellow (Yellow)
[2023-03-19 16:18] LABS: Add Urine Microscopic? YES; Bilirubin Urine 1+ (Negative); Blood Urine 2+ (Negative); Glucose Urine UA Norm (Normal); Ketones Urine Negative (Negative); Leukocyte Esterase Urine 2+ (Negative); Nitrate Urine Negative (Negative); Protein Urine 1+ (Negative); Specific Gravity, Urine 1.025 (1.005-1.030); Urobilinogen Urine Norm (Negative); pH Urine 5 (5-7)
[2023-03-19 16:20] VITALS: RESP 18
[2023-03-19] MEDS: morphine 4 mg/mL SDV 1 mL IVP (16:20)
[2023-03-19] MEDS: ondansetron 2 mg/ML SDV 2 mL 4 MG IVP (16:21)
[2023-03-19 16:30] LABS: Creatine Phosphokinase 25 U/L (26-192)
[2023-03-19 16:31] LABS: RBC Urine 0-4 /hpf (0-2); Squamous Epithelial Cell Urine 0-4 /hpf (0-5)
[2023-03-19 16:32] LABS: Add Urine Culture? No; Bacteria Urine TRACE /hpf; Mucus Urine TRACE /hpf
--- NOTE | 2023-03-19 17:54 | PC.NURSE ---
Pt is refusing vital signs to be taken, stating that she just wants to go . Pt was given a BSC to use restroom after pain medication was given. Pt's requested bath wipes for patient as well - warm ones given by this nurse.
[2023-03-19 17:57] VITALS: RESP 18
--- NOTE | 2023-03-20 11:58 | DCPLANNER ---
pricing manager had message to check on patients referral to oncology - patient was referred to oncology. The oncology clinic spoke with patients primary care physician and stated that patient would need to have a needle biopsy completed before patient could be seen. Patient has a biopsy scheduled for 03.28.23, leather case finisher spoke with patients friend about the referral to oncology.
== END 2023-03-19 18:05 | disposition home or self-care (01) ==
PROVIDERS: Emergency Provider Family Medicine; PCP Nurse Practitioner Family
DX: C79.9 Secondary malignant neoplasm of unspecified site (principal); C79.51 Secondary malignant neoplasm of bone; Z79.02 Long term (current) use of antithrombotics/antiplatelets; Z87.891 Personal history of nicotine dependence; Z86.73 Personal history of transient ischemic attack (TIA), and cerebral infarction without residual deficits; I10 Essential (primary) hypertension
CPT/HCPCS: 36415; 71045; 80053; 81001; 82550; 83690; 83735; 83880; 85025; 93005; 96361; 96374; 96375; 99285; J2270; J2405; J7030

== ENCOUNTER 2023-03-27 19:27 | Emergency (ER) | payer MEDICARE, SELFPAY ==
--- NOTE | 2023-03-27 19:38 | CTR_ITS ---
PROCEDURE INFORMATION: Exam: CT Head Without Contrast Exam date and time: 03/27/2023 9:05 PM Age: 52 years old Clinical indication: Altered mental status/memory loss; Additional info: AMS TECHNIQUE: Imaging protocol: Computed tomography of the head without contrast. Radiation optimization: All CT scans at this facility use at least one of these dose optimization techniques: automated exposure control; mA and/or kV adjustment per patient size (includes targeted exams where dose is matched to clinical indication); or iterative reconstruction. REPORTING DATA: Count of CT and Cardiac NM exams in prior 12 months: This patient has received 3 known CTs and 0 known cardiac nuclear medicine studies in the 12 months prior to the current study. COMPARISON: CT head wo con* [id number] 07/23/2018 2:19 PM RADIATION DOSE METRICS: Total DLP (mGy-cm): 1187.49 FINDINGS: Brain: Mild diffuse white matter disease likely reflecting chronic microvascular ischemic changes. Cerebral ventricles: No ventriculomegaly. Paranasal sinuses: Visualized sinuses are unremarkable. No fluid levels. Mastoid air cells: Visualized mastoid air cells are well aerated. Bones/joints: Unremarkable. No acute fracture. Soft tissues: Unremarkable. CT/CT head wo con* [id number] IMPRESSION: Negative for intracranial hemorrhage or mass effect.
--- NOTE | 2023-03-27 19:38 | XRR_ITS ---
PROCEDURE INFORMATION: Exam: XR Chest Exam date and time: 03/27/2023 9:01 PM Age: 52 years old Clinical indication: Other: AMS. Known lung and bone metastasis. TECHNIQUE: Imaging protocol: Radiologic exam of the chest. Views: 1 view. COMPARISON: CR XR chest 1V portable [id number] 03/19/2023 3:07 PM, CT chest performed March 02, 2023 FINDINGS: Lungs: Multiple indistinct nodular densities mid-lower lung zones more pronounced laterally left lower lobe that appear to have progressed from previous exam and consistent with history of pulmonary metastasis. Pleural spaces: Unremarkable. No pleural effusion. No pneumothorax. Heart/Mediastinum: Cardiac silhouette is in large but stable. Bones/joints: Unremarkable for age. XR/XR chest 1V portable [id number] IMPRESSION: Enlarging pulmonary nodules consistent with progression of known pulmonary metastasis.
[2023-03-27 19:41] VITALS: BP 149/113; PULSE 94; RESP 20; TEMP 36.6; O2SAT 95; BMI 54.8
--- NOTE | 2023-03-27 19:44 | W.ED.GENADLT ---
HPI - General Adult General: Chief complaint: Altered Mental Status Stated complaint: CONFUSION Time Seen by Provider: 03/27/23 19:33 Source: EMS Mode of arrival: EMS Limitations: altered mental status History of Present Illness: 52-year-old female who with a recent diagnosis of cancer with multiple metastatic lesions to her spine. Patient is brought in by EMS today for ongoing severe pain along with confusion. Per EMS her was very poor historian and she is confused and not really able to give any history. She is not answering any my questions here she is awake and alert able to tell me her name and that is it. Review of Systems General: Reports: ROS unobtainable due to mental status PFSH ED PFSH: Medical History Anxiety Bipolar disorder delivery delivered 1991 CVA (cerebral vascular accident) Depression Hypertension Morbid obesity Osteoarthritis Sleep apnea TIA (transient ischemic attack) Surgical History H/O adenoidectomy H/O dilation and curettage H/O tubal ligation History of left knee surgery History of tonsillectomy Family History Father CAD (coronary artery disease) Hypertension Mother Hypertension Hypothyroidism Social History Smoking and tobacco status: former smoker Alcohol intake: never Substance/Drug Use: never Household members: spouse Marital status: Current occupational status: disabled Current occupational exposures/hazards: No Do you think of yourself as: Straight/Heterosexual Lara/Scientology: Mandaeism Special lara needs: No Agree to transfusion: No Financial difficulty paying for basics: Decline to Answer Physical Exam Const: COMMON NORMALS: negative for patient oriented x3 GENERAL APPEARANCE: disheveled HENMT: COMMON NORMALS: normocephalic and atraumatic HEAD & SCALP: normocephalic and atraumatic Eye: COMMON NORMALS: Equal, round and reactive pupils present and EOMs intact bilaterally PUPIL: Yes Equal, round and reactive pupils present Neck/C-Spine: COMMON NORMALS: full ROM and supple Chest: COMMONS NORMALS: normal inspection of the chest and normal palpation of entire chest wall Resp: COMMON NORMALS: normal respiratory effort, No retractions, No use of accessory muscles and clear to auscultation bilaterally AUSCULTATION: clear to auscultation bilaterally Cardio: COMMON NORMALS: regular rate, regular rhythm and No murmurs present (Cardio) RATE: regular rate RHYTHM: regular rhythm GI: COMMON NORMALS: Normal to inspection, nondistended, normoactive bowel sounds present, Soft to palpation, non-tender and no masses PALPATION: Yes Soft to palpation Extremity: COMMON NORMALS: normal to inspection and full ROM Neuro: COMMON NORMALS: moves all extremities and no focal motor deficits; negative for patient oriented x3 Psych: COMMON NORMALS: cooperative; negative for mental status grossly normal and negative for Normal thought process present THOUGHT PROCESS: abnormal Skin: COMMON NORMALS: no rashes or lesions noted and no wounds GENERAL SKIN EXAM: no rashes or lesions noted Course Vital Signs: Vital signs: Vital Signs Temperature 98 F 03/27/23 19:41 Pulse Rate 89 03/27/23 21:54 Respiratory Rate 18 03/27/23 21:03 Blood Pressure 143/101 03/27/23 21:54 Pulse Oximetry 92 03/27/23 21:54 Oxygen Delivery Me thod Room Air 03/27/23 21:54 MDM - General Adult Medical Decision Making Patient presents here with abdominal pain she was confused when she first arrived she is now awake alert answering my questions appropriately she feels improved here she does have likely liver cancer with multiple mets she is stable for discharge she is to follow-up with oncology return if worsening we will write her Percocet for home Medical Records I reviewed the patient's medical records. Lab Data I reviewed the patient's lab results. 03/27/23 20:10 03/27/23 20:10 Radiology Impressions Chest X-Ray 03/27/23 19:38 IMPRESSION: Enlarging pulmonary nodules consistent with progression of known pulmonary metastasis. Head CT 03/27/23 19:38 IMPRESSION: Negative for intracranial hemorrhage or mass effect. Abdomen/Pelvis CT 03/27/23 20:15 IMPRESSION: 1. Multiple pulmonary nodules lower lobes believe metastatic in nature relatively stable from recent CT exam. 2. 3 cm lower paraesophageal cystic mass and enlarged epicardial lymph nodes also presumed metastatic in nature. 3. Large infiltrating liver mass right lobe likely malignant and either primary or metastatic in nature. 4. Additional small circumscribed liver lesions likely metastatic in nature relatively stable. 5. Multiple bone metastasis of the thoracolumbar spine and pelvis relatively unchanged. 6. 4.5 cm septated cystic lesion left ovary likely neoplastic and may be benign or malignant in nature, stable. Laboratory Results WBC 11.0 10^3/uL (4.0-10.0) H 03/27/23 20:10 RBC 4.81 10^6/uL (4.1-5.3) 03/27/23 20:10 Hgb 12.2 g/dL (11.5-15.3) 03/27/23 20:10 Hct 40.2 % (37.0-47.0) 03/27/23 20:10 MCV 83.6 fl (81-99) 03/27/23 20:10 MCH 25.4 pg (28.0-34.0) L 03/27/23 20:10 MCHC 30.3 g/dL (30.0-36.0) 03/27/23 20:10 RDW 16.0 % (12.1-15.1) H 03/27/23 20:10 Plt Count 483 10^3/cmm (130-400) H 03/27/23 20:10 MPV 9.4 fL (7.4-10.4) 03/27/23 20:10 Neut % (Auto) 69.0 % 03/27/23 20:10 Lymph % (Auto) 22.8 % 03/27/23 20:10 Emanuel % (Auto) 6.7 % 03/27/23 20:10 Eos % (Auto) 0.6 % 03/27/23 20:10 Baso % (Auto) 0.5 % 03/27/23 20:10 Neut # (Auto) 7.58 10^3/uL (1.8-7.7) 03/27/23 20:10 Lymph # (Auto) 2.5 10^3/uL (0.8-4.8) 03/27/23 20:10 Emanuel # (Auto) 0.7 10^3/uL (0.2-0.9) 03/27/23 20:10 Eos # (Auto) 0.1 10^3/uL (0.0-0.8) 03/27/23 20:10 Baso # (Auto) 0.1 10^3/uL (0.0-0.1) 03/27/23 20:10 Nucleated RBC % (auto) 0 % 03/27/23 20:10 Nucleated RBCs # 0.0 /100WBC 03/27/23 20:10 PT 14.10 SECONDS (12.1-14.9) 03/27/23 20:10 INR 1.05 (0.8-1.2) 03/27/23 20:10 Sodium 139 mmol/L (136-145) 03/27/23 20:10 Potassium 3.9 mmol/L (3.5-5.1) 03/27/23 20:10 Chloride 102 mmol/L (98-107) 03/27/23 20:10 Carbon Dioxide 23 mmol/L (22-29) 03/27/23 20:10 Anion Gap 17.9 (5-19) 03/27/23 20:10 BUN 15 mg/dL (6-20) 03/27/23 20:10 Creatinine 0.7 mg/dL (0.5-0.9) 03/27/23 20:10 GFR Calculation 87.9 mL/min (90-130) L 03/27/23 20:10 Glucose 107 mg/dL (65-115) 03/27/23 20:10 POC Glucose 108 mg/dL (70-110) 03/27/23 21:25 Calculated Osmolality 289 mOsm/kg (285-295) 03/27/23 20:10 Calcium 9.0 mg/dL (8.5-10.5) 03/27/23 20:10 Magnesium 2.1 mg/dL (1.7-2.3) 03/27/23 20:10 Total Bilirubin 0.2 mg/dL (0.15-1.2) 03/27/23 20:10 AST 35 U/L (0-32) H 03/27/23 20:10 ALT 8 U/L (0-33) 03/27/23 20:10 Alkaline Phosphatase 77 U/L (35-105) 03/27/23 20:10 Ammonia 32 umol/L (11-51) 03/27/23 20:10 Total Protein 6.8 g/dL (6.6-8.7) 03/27/23 20:10 Albumin 3.4 g/dL (3.5-5.2) L 03/27/23 20:10 Globulin 3.4 g/dL (1.3-4.6) 03/27/23 20:10 Lipase 16 U/L (13-60) 03/27/23 20:10 Urine Color Yellow (Yellow) 03/27/23 21: Urine Appearance Hazy (CLEAR) A 03/27/23 21: Urine pH 6 (5-7) 03/27/23 21: Ur Specific [place] 1.020 (1.005-1.030) 03/27/23 21:26 Urine Protein 1+ (Negative) H 03/27/23 21:26 Urine Glucose (UA) Norm (Normal) 03/27/23 21: Urine Ketones Negative (Negative) 03/27/23 21: Urine Blood 3+ (Negative) H 03/27/23 21: Urine Nitrate Negative (Negative) 03/27/23 21: Urine Bilirubin 1+ (Negative) H 03/27/23 21: Urine Urobilinogen Norm mg/dL (Negative) 03/27/23 21:26 Ur Leukocyte Esterase 2+ (Negative) H 03/27/23 21:26 Urine RBC 25-40 /hpf (0-2) H 03/27/23 21:26 Urine WBC >100 /hpf (0-5) H 03/27/23 21:26 Ur Squamous Epith Cells 0-4 /hpf (0-5) H 03/27/23 21:26 Amorphous Sediment Not Reportable 03/27/23 21: Urine Bacteria Trace /hpf (NONE) 03/27/23 21:26 Discharge Plan Discharge Patient Disposition: Home Clinical Impression: Cancer, metastatic, Abdominal pain Condition: Stable Prescriptions: New Percocet 10-325 mg tablet 1 tab PO Q6H PRN (Reason: pain) Qty: 30 0RF No Action trazodone 150 mg tablet 150 mg PO BEDTIME spironolacton-hydrochlorothiaz [Aldactazide] 25-25 mg tablet 1 tab PO DAILY metoprolol succinate 50 mg tablet extended release 24 hr 50 mg PO DAILY clopidogrel 75 mg tablet 75 mg PO DAILY hydroxyzine HCl 50 mg tablet 25 mg PO QID PRN (Reason: Anxiety) potassium chloride [Klor-Con 10] 10 mEq tablet extended release 10 meq PO DAILY losartan 100 mg tablet 100 mg PO DAILY Rx Instructions: take w/50mg to equal 150mg daily amlodipine 5 mg tablet 7.5 mg PO DAILY losartan 50 mg Tablet 50 mg PO DAILY Rx Instructions: take w/100mg to equal 150mg daily fluoxetine 40 mg capsule 40 mg PO DAILY gabapentin 600 mg tablet 600 mg PO QID ergocalciferol (vitamin D2) 1,250 mcg (50,000 unit) capsule 1,250 mcg PO Q7D Rx Instructions: on saturday albuterol sulfate 90 mcg/actuation HFA aerosol inhaler 2 puff INHALATION Q4H hydrocodone-acetaminophen 5-325 mg tablet 1 tab PO Q8H PRN (Reason: pain) Qty: 14 0RF ciprofloxacin HCl 500 mg tablet 500 mg PO Q12H Qty: 20 0RF hydrocodone-acetaminophen 7.5-325 mg tablet 1 tab PO Q8H PRN (Reason: pain (scale score 7-10)) Qty: 12 0RF Percocet 5-325 mg tablet 1 tab PO Q6H PRN (Reason: pain) Qty: 20 0RF promethazine 25 mg tablet 25 mg PO Q6H PRN (Reason: nausea and vomiting) Qty: 20 0RF Discharge Orders: Discharge ED (Routine); Ordered 03/27/23 Ordered By: Selina Johnson Referrals: Maritza Ordonez [Primary Care Provider] - Discharge Diet: Advance as tolerated Discharge Activity: Resume usual activity Patient Instructions: Abdominal Pain (ED), Opioid Safety, Pain Management Coding Level of Care Code ED Test Operator for Len Howard
--- NOTE | 2023-03-27 20:15 | CTR_ITS ---
PROCEDURE INFORMATION: Exam: CT Abdomen And Pelvis With Contrast Exam date and time: 03/27/2023 9:08 PM Age: 52 years old Clinical indication: Abdominal pain; Additional info: Abd pain TECHNIQUE: Imaging protocol: Computed tomography of the abdomen and pelvis with contrast. Radiation optimization: All CT scans at this facility use at least one of these dose optimization techniques: automated exposure control; mA and/or kV adjustment per patient size (includes targeted exams where dose is matched to clinical indication); or iterative reconstruction. Contrast material: OMNI 350; Contrast volume: 100 ml; Contrast route: INTRAVENOUS (IV); REPORTING DATA: Count of CT and Cardiac NM exams in prior 12 months: This patient has received 3 known CTs and 0 known cardiac nuclear medicine studies in the 12 months prior to the current study. COMPARISON: CT kidney stone [id number] 03/12/2023 12:03 AM RADIATION DOSE METRICS: Total DLP (mGy-cm): 1220.42 FINDINGS: Lungs: The multiple circumscribed pulmonary nodules of varying sizes lower lung zones measuring up to 1.3 cm study markedly changed from previous exam. Mediastinal space: 3 x 2 cm oval-shaped cystic/necrotic lesion just anterior to the distal esophagus above the hemidiaphragm likely metastatic in nature. Cluster of enlarged pericardial lymph nodes anterior to the right heart border also probably metastatic in nature, stable. Liver: There is a large somewhat infiltrating ill-defined liver mass central portion right lobe not markedly changed when allowing for differences in technique high suspicious for malignancy and may be primary or metastatic in nature. There are additional smaller circumscribed liver lesions throughout the right lobe that are likely metastatic. There is also a circumscribed mass within the caudate that is likely metastatic. Liver is mildly bulbous and heterogeneous in appearance that may be due to underlying small fibroids. Gallbladder and bile ducts: There is a mild focal nodular thickening along the gallbladder wall of the fundus that is unchanged and may be secondary to small polyps or adenomyomatosis. Pancreas: Unremarkable. Main pancreatic duct is not significantly dilated. Spleen: Spleen is mildly enlarged, unchanged. Adrenal glands: Normal. No mass. Kidneys and ureters: There are few small cortical cysts both kidneys some of which are too small to adequately characterize otherwise kidneys are unremarkable. Stomach and bowel: Unremarkable. No obstruction. No mucosal thickening. Appendix: No evidence of appendicitis. Intraperitoneal space: Unremarkable. No free air. No significant fluid collection. Vasculature: Scattered atherosclerotic changes of the abdominal aorta and iliac vessels. No aortic aneurysm. Lymph nodes: See Mediastinal space finding. Urinary bladder: There is a Wilkes catheter balloon within the urinary bladder which is collapsed and difficult to further assess. Reproductive: 4.5 cm multi septated cystic mass arising the left ovary, stable likely neoplastic in may be benign or malignant. Bones/joints: There are osteolytic bone lesions involving T6 and L2 vertebral bodies. Lesion at L2 is somewhat expansile extending into the anterior aspect of the spinal canal with accompanying pathological fracture of the vertebral body, unchanged. There is also a similar smaller lesion within the spinous process of L1 and medial aspect of the left acetabular roof.. Soft tissues: Unremarkable. CT/CT abdomen pelvis w con* [id number] IMPRESSION: 1. Multiple pulmonary nodules lower lobes believe metastatic in nature relatively stable from recent CT exam. 2. 3 cm lower paraesophageal cystic mass and enlarged epicardial lymph nodes also presumed metastatic in nature. 3. Large infiltrating liver mass right lobe likely malignant and either primary or metastatic in nature. 4. Additional small circumscribed liver lesions likely metastatic in nature relatively stable. 5. Multiple bone metastasis of the thoracolumbar spine and pelvis relatively unchanged. 6. 4.5 cm septated cystic lesion left ovary likely neoplastic and may be benign or malignant in nature, stable.
[2023-03-27] MEDS: iohexol 350 mg/mL 500 mL Btl (per mL) IV (20:19)
[2023-03-27 20:20] LABS: Basophils # 0.1 10^3/uL (0.0-0.1); Basophils % 0.5 %; Eosinophils # 0.1 10^3/uL (0.0-0.8); Eosinophils % 0.6 %; Hematocrit 40.2 % (37.0-47.0); Hemoglobin 12.2 g/dL (11.5-15.3); Lymphocytes # 2.5 10^3/uL (0.8-4.8); Lymphocytes % 22.8 %; Mean Corpuscular HGB Conc 30.3 g/dL (30.0-36.0); Mean Corpuscular Hemoglobin 25.4 pg (28.0-34.0); Mean Corpuscular Volume 83.6 fl (81-99); Mean Platelet Volume 9.4 fL (7.4-10.4); Monocytes # 0.7 10^3/uL (0.2-0.9); Monocytes % 6.7 %; Neutrophils # 7.58 10^3/uL (1.8-7.7); Nucleated Red Blood Cells % 0 %; Platelet Count 483 10^3/cmm (130-400); Red Blood Count 4.81 10^6/uL (4.1-5.3)
--- NOTE | 2023-03-27 20:24 | ECG_ITS ---
[facility] Test Date: 2023-03-27 Pat Name: Lauryn Ho Department: Room: Gender: Female Manager Of Merchandising: : 1970 Requested By: Selina Johnson Order Number: [id number] Reading MD: Kamari Callahan M.D. Measurements Intervals [place] Rate: 105 P: 42 SC: 156 QRS: -14 QRSD: 80 T: 66 QT: 357 QTc: 473 Interpretive Statements SINUS TACHYCARDIA NONSPECIFIC ST & T-WAVE ABNORMALITY Compared to ECG 03/19/2023 15:32:49 Sinus rhythm no longer present T-wave abnormality still present Electronically Signed On 03-27-2023 23:18:23 CDT by Kamari Callahan M.D. [email or web address]
[2023-03-27 20:33] LABS: INR 1.05 (0.8-1.2)
[2023-03-27 20:37] LABS: Ammonia 32 umol/L (11-51)
[2023-03-27 20:38] LABS: Alanine Aminotransferase 8 U/L (0-33); Albumin Level 3.4 g/dL (3.5-5.2); Alkaline Phosphatase 77 U/L (35-105); Anion Gap 17.9 (5-19); Aspartate Amino Transferase 35 U/L (0-32); Blood Urea Nitrogen 15 mg/dL (6-20); Carbon Dioxide 23 mmol/L (22-29); Chloride 102 mmol/L (98-107); Globulin 3.4 g/dL (1.3-4.6); Glomerular Filtration Rate 87.9 mL/min (90-130); Glucose 107 mg/dL (65-115); Lipase 16 U/L (13-60); Magnesium 2.1 mg/dL (1.7-2.3); Osmolality Calculated 289 mOsm/kg (285-295); Potassium 3.9 mmol/L (3.5-5.1); Sodium 139 mmol/L (136-145); Total Bilirubin 0.2 mg/dL (0.15-1.2); Total Protein 6.8 g/dL (6.6-8.7)
[2023-03-27] MEDS: sodium chloride 0.9% 1,000 ML 999 ML IV (20:46)
[2023-03-27] MEDS: ondansetron 2 mg/ML SDV 2 mL 4 MG IVP (20:49)
[2023-03-27 20:53] VITALS: BP 198/104; PULSE 96; RESP 18; O2SAT 92
[2023-03-27 21:03] VITALS: RESP 18; O2SAT 92
[2023-03-27] MEDS: HYDROmorphone 1 mg/mL INJ 1 mL 0.5 MG IVP (21:03)
[2023-03-27 21:30] VITALS: BP 173/99; PULSE 95; O2SAT 90
[2023-03-27 21:30] LABS: Glucose Point of Care 108 mg/dL (70-110)
[2023-03-27 21:44] LABS: Add Urine Culture? Yes; Add Urine Microscopic? YES; Bacteria Urine TRACE /hpf; Bilirubin Urine 1+ (Negative); Blood Urine 3+ (Negative); Glucose Urine UA Norm (Normal); Ketones Urine Negative (Negative); Leukocyte Esterase Urine 2+ (Negative); Nitrate Urine Negative (Negative); Protein Urine 1+ (Negative); RBC Urine 25-40 /hpf (0-2); Squamous Epithelial Cell Urine 0-4 /hpf (0-5); Urine Appearance Hazy (CLEAR); Urine Color Yellow (Yellow); Urobilinogen Urine Norm (Negative); WBC Urine >100 /hpf (0-5); pH Urine 6 (5-7)
[2023-03-27 21:54] VITALS: BP 143/101; PULSE 89; O2SAT 92
[2023-03-27] MEDS: oxyCODONE-APAP 10-325 mg Tablet 2 TAB PO (22:23)
--- NOTE | 2023-03-27 22:35 | PC.NURSE ---
Wilkes removed prior to pt dc.
[2023-03-27 22:44] VITALS: BP 169/95; PULSE 88; RESP 18; O2SAT 93
== END 2023-03-27 22:52 | disposition home or self-care (01) ==
PROVIDERS: Emergency Provider Emergency Medicine; PCP Nurse Practitioner Family
DX: R10.9 Unspecified abdominal pain (principal); C79.51 Secondary malignant neoplasm of bone
CPT/HCPCS: 36415; 36416; 51702; 70450; 71045; 74177; 80053; 81001; 82140; 82962; 83690; 83735; 85025; 85610; 87077; 87086; 87186; 93005; 96374; 96375; 99285; J1170; J2405; J7030; Q9967

== ENCOUNTER 2023-04-03 12:04 | Outpatient (CLI) | payer MEDICARE, MEDICAID, SELFPAY ==
[2023-04-01 12:23] VITALS: BMI 47.5
[2023-04-03] VITALS (8 sets, daily range): BP systolic 79–125; BP diastolic 52–93; PULSE 72–107; RESP 16–20; TEMP 36.1–36.7; O2SAT 90–98
--- NOTE | 2023-04-03 12:06 | US_ITS ---
WS: [id number] ULTRASOUND GUIDED BIOPSY RIGHT LIVER LESIONS INDICATION: Liver metastasis TECHNIQUE: The procedure including risks, benefits, and complications were discussed with the patient who agreed to proceed. Patient was prepped and draped in usual sterile fashion. Timeout was performe d. After 1% lidocaine, using ultrasound guidance, approximately 6 18-gauge cores were obtained of the liver metastasis. Small amount of air and expected hemorrhage within the biopsy cavity. The patient remained in the ultrasound suite with intermittent imaging for 10 minutes postprocedure. Patient néstor ined in the recovery unit approximately 40 minutes post biopsy. No immediate complications. US/US biopsy liver [id number] IMPRESSION: Uncomplicated liver mass biopsy. Pathology is pending.
[2023-04-03] MEDS: sodium chloride 0.9% 1,000 ML 30 ML IV (13:38)
[2023-04-03 14:35] LABS: INR 1.04 (0.8-1.2)
[2023-04-03] MEDS: midazolam 1 mg/mL INJ 2 mL IVP ×2 (15:55→16:00)
[2023-04-03] MEDS: fentaNYL 50 mcg/mL INJ 2mL 25 MCG IVP ×2 (15:55→16:00)
[2023-04-11 12:38] LABS: PD-L1 (Clone 22C3) by IHC BBPL See Report
== END 2023-04-03 16:55 | disposition home or self-care (01) ==
PROVIDERS: Radiology Neuroradiology; PCP Nurse Practitioner Family; Visit Provider Nurse Practitioner Family
DX: C78.7 Secondary malignant neoplasm of liver and intrahepatic bile duct (principal)
CPT/HCPCS: 36415; 47000; 76942; 85610; 88307; 88341; 88342; J2250; J3010; J7030